=== PATIENT | female | born 1950 | race Caucasian/White ===

== ENCOUNTER → 2018-04-29 | Outpatient (CLI) | payer MEDICARE, OTHER | LOC: LAB SHORT 10:18 → LAB 10:18 | DX: S91.001A Unspecified open wound, right ankle, initial encounter (principal) | CPT/HCPCS: 87070; 87205 ==

== ENCOUNTER 2021-09-15 14:51 | Inpatient (IN) | payer MEDICARE, OTHER ==
[~2021-09-15] VITALS: Ht 154.9 cm; Wt 54.7 kg
[2021-09-15 17:51] LABS: PCO2 Arterial 42.6 mmHg (35-45)
[2021-09-15 17:59] LABS: BASOPHILS ABSOLUTE AUTO 0.03 K/mm3 (0.00-0.23); BASOPHILS PERCENT AUTO 0 % (0-2); EOSINOPHILS PERCENT AUTO 0 % (0-6); Hematocrit 40.5 % (33.0-51.0); Hemoglobin 13.6 g/dL (11.5-16.0); IMMATURE GRAN ABSOLUTE AUTO 0.06 K/mm3 (0.00-0.10); IMMATURE GRAN PERCENT AUTO 0 % (0-1); LYMPHOCYTES ABSOLUTE AUTO 0.55 K/mm3 (0.84-5.20); LYMPHOCYTES PERCENT AUTO 4 % (21-46); MONOCYTES ABSOLUTE AUTO 1.23 K/mm3 (0.16-1.47); MONOCYTES PERCENT AUTO 9 % (4-13); Mean Corpuscular HGB 29.7 pg (26.0-34.0); Mean Corpuscular HGB Conc 33.6 g/dL (31.5-36.5); Mean Corpuscular Volume 88 fL (80-100); Mean Platelet Volume 12.3 fL (9.1-12.4); NEUTROPHILS ABSOLUTE AUTO 11.52 K/mm3 (1.96-9.15); NEUTROPHILS PERCENT AUTO 86 % (41-73); Platelet Count 195 K/mm3 (150-400); RDW Coefficient Variation 13.8 % (11.7-14.2); RDW Standard Deviation 44.8 fL (35.1-46.3); Red Blood Cell Count 4.58 M/mm3 (3.80-5.20); White Blood Cell Count 13.39 K/mm3 (4.00-11.30)
[2021-09-15 18:25] LABS: Magnesium, Blood 1.6 mg/dL (1.6-2.4)
[2021-09-15 18:30] LABS: Albumin, Blood 2.9 g/dL (3.4-5.0); Albumin/Globulin Ratio 1.1 (0.8-1.8); Bilirubin, Total 0.9 mg/dL (0.1-1.0); Bun/Creatinine Ratio 15.1 (12.0-20.0); Calcium, Blood 8.5 mg/dL (8.5-10.1); Creatinine, Blood 0.99 mg/dL (0.40-1.00); Globulin, Blood 2.7 g/dL (2.2-4.0); Phosphorus, Blood 2.8 mg/dL (2.5-4.9); Potassium, Blood 4.7 mmol/L (3.5-5.5); Total Protein, Blood 5.6 g/dL (6.4-8.2)
--- NOTE | 2021-09-15 19:28 | NUR ---
Assumed care. Report received from abdelrahman KAYE. Pt in bed, sedated and ventilated via ETT. Vent settings: AC/VC 14/300/5/45%. OG tube in place, to low int suction. R/fem central line in place, wnl. IV access in L/ac and R/ac. IV pumps running propfol at 10 mcg/kg/min, levophed at 12 mcg/min, and NS at 100 ml/hr. Trammell catheter in place, draining to gravity. SWB restraints in place. VS stable, no acute needs att. Will continue to monitor.
--- NOTE | 2021-09-15 19:32 | NUR ---
ICU DIRECT ADMISSION: REPORT RECEIVED FROM MIKKI FITZGERALD AT [facility]. PT HAS ARRIVED TO ICU-13 VIA DIRECT ADMISSION AT APPROX 1710. ON ARRIVAL, THE PT IS SEDATED W/ FENTANYL & VERSED DRIPS. MEDICATIONS PLACED ON SB PER DR BARKER TO ASSESS PT MENTATION. SHE BEGINS TO AWAKEN & APPEARS TO BE FRIGHTENED/ CONFUSED AT THAT TIME, DOES NOT FOLLOW DIRECTIONS. PUPILS ARE EQUAL, REACTIVE & BRISK. PROPOFOL INITIATED AT THAT TIME. LS ARE CLEAR T/O, PT ON VENT W/ SETTINGS INITIALLY AC/VC 22/300/7/90%, ADJUSTED TO 14/300/5/60% PER GER M, RT. O2 SATS REMAIN > 95% ON AVG. MONITOR SHOWS SR W/ HR 90s, LEVOPHED INITIALLY INFUSING AT 0.2 MCG/KG/MIN FOR A CALCULATED RATE OF 11.3 MCG/MIN. CHANGED BY THIS RN TO 12 MCG/MIN. PT REMAINS HYPOTENSIVE W/ SBP 90s, MAP MAINTAININ > 65. OGT IN PLACE TO LIS, MOD AMNTS OF ORANGE COLORED LIQUID NOTED IN CANISTER, PER TUBE KCL REPLETION GIVEN APPROX 3 HRS PRIOR BY [facility], BT HYPOACTIVE. 16F TEMP CRUZ IN PLACE ON ARRIVAL TO ICU, DRAINING COPIOUS AMNTS CLEAR YELLOW URINE. SKIN CONDITION OVERALL FRAGILE, INTACT. NUMEROUS AREAS OF ECCYMOSIS NOTED TO BUE. THE PT's HAS CALLED & STS THAT HE BELIEVES THIS INCIDENT TO BE AN INTENTIONAL OVERDOSE. Blanca WELCH & MJ AWARE, THE PT WILL BE HIGH SI RISK W/ 1:1 SITTER ONCE EXTUBATED. POISON CENTER CONTACTED BY THIS RN, UPDATED THEM ON PT's VS & CURRENT LABS. THEY RECOMMEND RECHECKING ACETAMINOPHEN, SALICYLATE & CK LEVELS, WELL OBTAINING AN EKG THERE IS NO RECORD OF ONE BEING COMPLETED PRIOR. DR BARKER AWARE & ORDERS PLACED. REPORT GIVEN TO MINNIE Zuniga RN TO ASSUME CARE.
[2021-09-15 19:41] LABS: Acetaminophen, Random <2.0 ug/mL (10.0-30.0); Salicylate <1.7 mg/dL (2.8-20.0)
[2021-09-15 19:49] LABS: CPK Creatine Kinase 4345 U/L (26-193); Creatine Kinase MB Index 4.2 (0.0-4.0)
[2021-09-15 23:28] LABS: Albumin, Blood 2.8 g/dL (3.4-5.0); Bilirubin, Direct 0.3 mg/dL (0.0-0.3); Bilirubin, Indirect 0.6 mg/dL (0.1-0.7); Bilirubin, Total 0.9 mg/dL (0.1-1.0); Globulin, Blood 2.7 g/dL (2.2-4.0); Total Protein, Blood 5.5 g/dL (6.4-8.2)
[2021-09-16 03:46] LABS: BASOPHILS ABSOLUTE AUTO 0.05 K/mm3 (0.00-0.23); BASOPHILS PERCENT AUTO 0 % (0-2); Hematocrit 39.5 % (33.0-51.0); Hemoglobin 13.2 g/dL (11.5-16.0); LYMPHOCYTES ABSOLUTE AUTO 1.08 K/mm3 (0.84-5.20); LYMPHOCYTES PERCENT AUTO 5 % (21-46); MONOCYTES ABSOLUTE AUTO 1.58 K/mm3 (0.16-1.47); MONOCYTES PERCENT AUTO 7 % (4-13); Mean Corpuscular HGB 29.3 pg (26.0-34.0); Mean Corpuscular HGB Conc 33.4 g/dL (31.5-36.5); Mean Corpuscular Volume 88 fL (80-100); Mean Platelet Volume 12.4 fL (9.1-12.4); Platelet Count 211 K/mm3 (150-400); RDW Standard Deviation 45.1 fL (35.1-46.3)
[2021-09-16 03:54] LABS: EOSINOPHILS ABSOLUTE AUTO 0.21 K/mm3 (0.00-0.68); EOSINOPHILS PERCENT AUTO 1 % (0-6); IMMATURE GRAN ABSOLUTE AUTO 0.19 K/mm3 (0.00-0.10); IMMATURE GRAN PERCENT AUTO 1 % (0-1); NEUTROPHILS ABSOLUTE AUTO 19.69 K/mm3 (1.96-9.15); NEUTROPHILS PERCENT AUTO 87 % (41-73)
[2021-09-16 04:06] LABS: Albumin, Blood 2.7 g/dL (3.4-5.0); Albumin/Globulin Ratio 0.9 (0.8-1.8); Bilirubin, Total 0.9 mg/dL (0.1-1.0); Bun/Creatinine Ratio 12.8 (12.0-20.0); Calcium, Blood 8.4 mg/dL (8.5-10.1); Creatinine, Blood 1.09 mg/dL (0.40-1.00); Globulin, Blood 2.9 g/dL (2.2-4.0); Total Protein, Blood 5.6 g/dL (6.4-8.2)
--- NOTE | 2021-09-16 06:39 | NUR ---
Shift summary. Pt continues in bed, sedated and ventilated. Vent settings changed to PS 8/5, 35% FiO2. OG tube to low int suction. Levophed at 13 mcg/min, propofol at 20 mcg/kg/min, LR at 100 ml/hr. 1700 out of lugo this shift, clear/yellow. Pt is more responsive now, will nod yes/no to questions and follow simple commands. VS stable, see shift assessment for further details. Will continue to monitor and report off to dayshift RN.
--- NOTE | 2021-09-16 08:05 | NUR ---
ASSUMED CARE: REPORT RECEIVED FROM MORA Zuniga RN. ASSUMED CARE OF THIS PT AT APPROX 0700. ON ASSESSMENT, THE PT IS SEDATED W/ PROPOFOL & OVERALL RESTING QUIETLY. SHE AWAKENS TO VERBAL STIMULUS & APPEARS STARTLED, GRABBING AT LINES/ TUBES. SHE RESPONDS WELL TO VERBAL REDIRECTION & IS ABLE TO FOLLOW DIRECTIONS, ANSWERING YES/ NO QUESTIONS BY NODDING HEAD & PYLE. LS ARE CLEAR, PT ON SPONTANEOUS W/ PS 8, PEEP 5 & FIO2 35% W/ O2 SATS > 92%. MONITOR SHOWS SR W/ HR 70-90s, HYPOTENSIVE ON LEVOPHED - SEE FLOWSHEET FOR TITRATIONS. OGT IN PLACE, CLAMPED AT APPROX 0750 AFTER AM MEDS, WILL RESUME LIS AT APPROX 0850. TEMP CRUZ PATENT/ DRAINING YELLOW URINE. SKIN CONDITION OVERALL FRAGILE, INTACT. Q2H REPOSITIONING TO MAINTAIN SKIN INTEGRITY. WILL CONTINUE TO MONITOR & UPDATE NEEDED.
--- NOTE | 2021-09-16 10:05 | NUR ---
POISON CENTER: CALL FROM POISON CENTER RN REQUESTING AN UPDATE ON THIS PT. THIS RN HAS PROVIDED POISON CENTER RN W/ UPDATED LAB WORK & VS, INFORMED THEM THAT PT IS LIKELY TO BE EXTUBATED TODAY AT SOME POINT. NO CHANGES TO POC AT THIS TIME, THEY WILL CALL BACK LATER FOR ANOTHER UPDATE.
--- NOTE | 2021-09-16 10:25 | NUR ---
DR BEST: PROVIDER AT BEDSIDE THIS AM TO EVAL PT. HE HAS ADJUSTED VENTILATOR SETTINGS TO SPONTANEOUS W/ PS 5, PEEP 5 & 30% FIO2. O2 SATS REMAIN > 95%. DR BEST WOULD LIKE TO EXTUBATE THIS PT TODAY. INFORMED HIM THAT A 1:1 SITTER WILL NEED TO BE ARRANGED R/T PT's HX SI/ SA & CURRENT OVERDOSE. WILL CONTACT HOSPITALIST DR WELCH & UPDATE HER WELL. NO OTHER CHANGES AT THIS TIME.
--- NOTE | 2021-09-16 15:25 | NUR ---
EXTUBATION / SUICIDE PRECAUTIONS IMPLEMENTATION: SEDATION HAS BEEN PLACED ON STANDBY & THE PT IS IS ABLE TO AWAKEN FULLY, FOLLOW DIRECTIONS & ANSWER YES/ NO QUESTIONS BY NODDING HEAD. DR BEST STS THAT SHE IS OKAY FOR EXTUBATION & ORDERS PLACED. THIS RN HAS CONTACTED DR WELCH REGARDING PENDING EXTUBATION TO NOTIFY HER OF NEED TO IMPLEMENT SI PRECAUTIONS FOR THIS PT R/T ADMITTING DX OF PRESCRIPTION OVERDOSE W/ UNKNOWN CIRCUMSTANCES. DR WELCH HAS PLACED ORDERS FOR INVOLUNTARY HOLD & PSYCHIATRY CONSULTATION. FACESHEET FAXED TO ED FOR DR WEATHERS BY THIS RN AT 1455. PT EXTUBATED & PLACED ON 2L NC AT 1458 BY RT SYLWIA. THE PT HAS A WEAK COUGH BUT HAS BEEN ABLE TO EXPECTORATE SOME SPUTUM & SPIT INTO YANKAUR WHEN PROMPTED BY THIS RN. O2 TITRATED UP TO 3L NC FOR DESATS TO 89% WHILE COUGHING/ ATTEMPTING TO SPEAK. THE PT HAS BEEN REMINDED BY THIS RN TO REST HER VOICE SHE WILL BE HOARSE S/P EXTUBATION. SHE ASKS THIS RN WHERE SHE IS & THIS RN EXPLAINS CIRCUMSTANCES OF HER ADMISSION. SHE IMMEDIATELY STS "I DID NOT TRY TO KILL MYSELF, THAT DOESN'T MAKE ANY SENSE." THIS RN INFORMS THE PT THAT A PSYCHIATRIC PROVIDER WILL BE SEEING HER TO ENSURE THAT SHE IS NOT A RISK TO HERSELF OR ANYONE ELSE & SHE HAS BEEN READ HER CIVIL RIGHTS. WITNESSED BY PO Alvarado RN, THE PT IS VERY WEAK & CURRENTLY UNABLE TO SIGN. RESTRAINTS REMOVED AT TIME OF EXTUBATION THE PT IS CURRENTLY APPROPRIATE & NOT ATTEMPTING TO PULL AT VITAL LINES/ TUBES. THIS RN IS NOW 1:1 SITTER AT BEDSIDE. ROOM MITIGATED & HIGH RISK SI DOCUMENTATION COMPLETE.
--- NOTE | 2021-09-16 17:16 | NUR ---
BEDSIDE SWALLOW EVAL: SWALLOW EVAL ATTEMPTED FOR THIS PT. AFTER 1ST TSP WATER THE PT HAS A GURGLING VOICE WHICH SHE IS ABLE TO CLEAR WELL & EXPECTORATES SOME SPUTUM AT THAT TIME ALSO. TRIAL STOPPED AT THAT TIME & PT CONTINUES TO BE NPO.
--- NOTE | 2021-09-16 17:20 | NUR ---
SHIFT SUMMARY: NO ACUTE CHANGES SINCE PRIOR UPDATES & EXTUBATION. THE PT REMAINS ORIENTED TO SELF, IS ABLE TO FOLLOW DIRECTIONS & MAKE NEEDS KNOWN. HER AFFECT IS EXTREMELY LABILE & AT TIMES SHE STS BEING THANKFUL TO THIS RN FOR THE CARE PROVIDED, WHILE AT OTHER TIMES SHE STS THAT THIS RN "DOES NOT CARE" ABOUT HER & BECOMES ANGRY, WAVING HER ARMS & STATING "NEVERMIND, GO AWAY." SHE IS ALSO HAVING SOME VISUAL HALLUCINATIONS, BUT IS AWARE THAT WHAT SHE IS SEEING IS NOT REAL & VERBALIZES THAT TO THIS RN. DR BEST HAS ORDERED IM ZYPREZA TO BE GIVEN PRN IF THE PT BECOMES INCREASINGLY AGITATED DURING THE EVENING OR NIGHT. VOICE REMAINS SOMEWHAT HOARSE BUT SHE IS BECOMING EASIER TO UNDERSTAND. LS DIM IN BASES, PT REMAINS ON 3L NC W/ O2 SATS > 92% ON AVG. COUGH IS BECOMING STRONGER & THE PT HAS BEEN ABLE TO EXPECTORATE SOME SPUTUM INTO TISSUES AT BEDSIDE. MONITOR SHOWS SR W/ HR 80s, LEVOPHED INFUSING AT 4 MCG/MIN W/ MAP > 65. THE PT HAS NO GI COMPLAINTS OTHER THAN THIRST, BEDSIDE SWALLOW ATTEMPTED, SEE PRIOR NOTE. TEMP CRUZ PATENT/ DRAINING DARK YELLOW URINE W/ ADEQUATE OUTPUT - SEE I&O. SKIN CONDITION OVERALL FRAGILE, ECCHYMOTIC, INTACT. Q2H REPOSITIONING TO MAINTAIN SKIN INTEGRITY. WILL CONTINUE TO MONITOR & REPORT OFF TO ONCOMING RN.
--- NOTE | 2021-09-16 17:42 | NUR ---
POISON CENTER: CALL FROM POISON CENTER RN REQUESTING AN UPDATE ON THIS PT. NOTIFIED THEM THAT THE PT HAS BEEN EXTUBATED & IS CURRENTLY DOING WELL W/ STABLE O2 SATS & IMPROVING BP. THIS RN HAS ASKED ABOUT THE MEDICATIONS THE PT IS SUSPECTED TO HAVE TAKEN REGARDING THE PT's CURRENT VISUAL HALLUCINATIONS. POISON CENTER RN STS THAT DUE TO THE ANTICHOLINERGIC EFFECTS OF SEROQUEL, IT IS LIKELY THAT OVERDOSING ON THIS MEDICATION COULD CAUSE VISUAL HALLUCINATIONS. IF THIS ISSUE WORSENS, CONTACT THE POISON CENTER AGAIN. NO CHANGES AT THIS TIME.
--- NOTE | 2021-09-16 19:00 | NUR ---
ASSUMPTION OF CARE PT IS RESTING IN BED. WHEN ENTERING ROOM, SHE MAKES EYE CONTACT AND SMILES. SHE IS PLEASANT, CALM AND COOPERATIVE AT THIS TIME. SHE STS "IT'S HARD FOR ME TO TALK, MY THROAT IS SORE AND THERE IS A CUP OF WATER OVER THERE". EXPLAINED RESULTS OF PREVIOUS SWALLOW EVAL AND IMPORTANCE OF PREVENTING ASPIRATION. SHE IS ABLE TO STATE HER FULL NAME/. SHE IS AWARE THAT SHE IS AT THE HOSPITAL BUT IS UNSURE HOW SHE GOT HERE. SHE ASKS "DID I FALL?". EXPLAINED THAT SHE WAS FOUND AT HER HOME, UNRESPONSIVE ON THE FLOOR AND THAT SHE RECEIVED CPR. SHE NODS AND SAYS "THAT MUST BE WHY MY CHEST IS SORE". SHE IS ON 3L NC WITH SPO2 >92%. LEVOPHED INFUSING AT 4MCG/MIN WIHT MAP >65. LUNGS ARE COARSE. SHE HAS A MOIST COUGH, ENCOURAGED DEEP BREATHING AND STRONG COUGH. TEMP CRUZ IN PLACE DRAINING CLEAR YELLOW URINE. CURRENT TEMP 100.2. CENTRAL LINE TO R GROIN INTACT. IVS IN LAC & RAC. RT AT BEDSIDE, PT PARTICIPATES IN CONVERSATION WITH HIM. THIS RN 1:1 SITTER AT BEDSIDE DUE TO HIGH RISK SI PRECAUTIONS.
--- NOTE | 2021-09-16 20:26 | NUR ---
SI REASSESSMENT PT STS "I DON'T KNOW WHY I'M HERE OR WHAT HAPPENED.". EXPLAINED THAT SHE WAS FOUND UNRESPONSIVE AT HOME WITH MEDICATION BOTTLES SURROUNDING HER. SHE STS "THAT DOESN'T MAKE SENSE". SHE STS SHE USED TO TAKE SEROQUEL BUT NO LONGER DOES AND THE BOTTLE MAY HAVE STILL BEEN IN THE VANITY. AT THIS TIME, SHE DENIES SI, DENIES ATTEMPTING OR EVER ATTEMPTING SELF HARM, DENIES A PLAN OR INTENTION OF SELF HARM. THIS RN CONTINUES TO BE A 1:1 SITTER AT BEDSIDE. WILL CONTINUE TO REASSESS.
--- NOTE | 2021-09-17 02:43 | NUR ---
UPDATE PT HAS BEEN SLEEPING ON AND OFF THROUGHOUT THE NIGHT. SHE REMAINS ALERT TO HERSELF AND THAT SHE IS IN THE HOSPITAL BUT DOES NOT KNOW WHY SHE IS HERE. PT REMINDED SEVERAL TIMES THIS SHIFT AND PT STS "I DON'T REMEMBER THAT". SHE CONTINUES TO DENY SI BUT ALSO DENIES ANY HISTORY OF SELF HARM. MOOD IS LABILE. SHE STAYS CALM BUT EXPRESSES FRUSTRATION. SHE INSISTS ON DRINKING WATER. EXPLAINED RISK FOR ASPIRATION AND PT STS "THIS PLACE IS TERRIBLE, I NEED WATER. I'M DEHYDRATED". EXPLAINED TO PT THAT SHE IS RECEIVING IV FLUIDS. PT SAT UP IN HIGH FOWLERS POSITION FOR BEDSIDE SWALLOW EVAL. WITH 1TSP WATER, PT IMMEDIATELY BEGINS COUGHING AND HAVING WET SECRETIONS. PT REMAINS NPO STATUS AND EXPLAINED AGAIN REASONING FOR THIS. SHE STS "THERE IS ALREADY WATER IN MY LUNGS SO WHY DOES IT MATTER IF MORE GETS IN". PT WANTS TO SIT ON BEDSIDE COMMODE. PT SAT ON EDGE OF BED WITH MINIMAL ASSISTANCE. SHE DENIES DIZZINESS OR FEELING LIGHTHEADED. PT ASSISTED TO BEDSIDE COMMODE, FAIRLY STEADY ON FEET WITH 1 PERSON ASSIST. UNABLE TO HAVE BM AT THIS TIME. LEVOPHED CONTINUES TO INFUSE AT 3MCG/MIN WITH MAP >65. SHE IS ON 4L NC WITH SPO2 >95%. HR 70S-80S. ONE SMALL RUN OF SINUS TACH IN 130S THAT QUICKLY RESOLVED WHILE PT WAS SLEEPING. SHE DENIES CP. THIS RN REMAINS 1:1 SITTER. PT CURRENTLY RESTING WITH EYES CLOSED.
[2021-09-17 04:31] LABS: BASOPHILS ABSOLUTE AUTO 0.03 K/mm3 (0.00-0.23); BASOPHILS PERCENT AUTO 0 % (0-2); EOSINOPHILS ABSOLUTE AUTO 0.02 K/mm3 (0.00-0.68); EOSINOPHILS PERCENT AUTO 0 % (0-6); Hematocrit 34.8 % (33.0-51.0); Hemoglobin 11.4 g/dL (11.5-16.0); IMMATURE GRAN ABSOLUTE AUTO 0.35 K/mm3 (0.00-0.10); IMMATURE GRAN PERCENT AUTO 2 % (0-1); LYMPHOCYTES ABSOLUTE AUTO 0.92 K/mm3 (0.84-5.20); LYMPHOCYTES PERCENT AUTO 5 % (21-46); MONOCYTES ABSOLUTE AUTO 0.87 K/mm3 (0.16-1.47); MONOCYTES PERCENT AUTO 5 % (4-13); Mean Corpuscular HGB 29.5 pg (26.0-34.0); Mean Corpuscular HGB Conc 32.8 g/dL (31.5-36.5); Mean Corpuscular Volume 90 fL (80-100); Mean Platelet Volume 12.8 fL (9.1-12.4); NEUTROPHILS ABSOLUTE AUTO 16.53 K/mm3 (1.96-9.15); NEUTROPHILS PERCENT AUTO 88 % (41-73); Platelet Count 152 K/mm3 (150-400); RDW Coefficient Variation 14.2 % (11.7-14.2); RDW Standard Deviation 46.5 fL (35.1-46.3); Red Blood Cell Count 3.87 M/mm3 (3.80-5.20); White Blood Cell Count 18.72 K/mm3 (4.00-11.30)
[2021-09-17 04:47] LABS: Albumin, Blood 2.3 g/dL (3.4-5.0); Anion Gap 8 mmol/L (6-16); Blood Urea Nitrogen 14 mg/dL (8-24); Bun/Creatinine Ratio 16.4 (12.0-20.0); CO2, Blood 29 mmol/L (21-32); Chloride, Blood 106 mmol/L (98-108); Creatinine, Blood 0.86 mg/dL (0.40-1.00); Glomerular Filtration Rate 72 (60-); Glucose, Blood 99 mg/dL (70-99); Phosphorus, Blood 3.3 mg/dL (2.5-4.9); Potassium, Blood 2.8 mmol/L (3.5-5.5); Sodium, Blood 143 mmol/L (136-145)
--- NOTE | 2021-09-17 05:41 | NUR ---
SHIFT SUMMARY PT HAS SLEPT ON AND OFF THROUGHOUT NIGHT. SHE REMAINS ON LEVOPHED AT 3MCG/MIN AND NS TKO. SHE IS ON 4L NC. PT IS ABLE TO STATE HER NAME AND , KNOWS HER FAMILY, AND KNOWS SHE IS IN THE HOSPITAL. SHE REPEATEDLY ASKED WHY SHE IS AT THE HOSPITAL, EXPLAINED SITUATION MULTIPLE TIMES. PT REPLIES WITH STATEMENTS INCLUDING "THAT DOESN'T MAKE SENSE.", "I DON'T KNOW HOW THAT WOULD HAPPEN", AND "MY IS THE REASON I'M IN HERE". WHEN ASKED ABOUT SHE SAYS THEY DO NOT GET ALONG WELL. SHE DENIES SI OR EVER HAVING A SUICIDE ATTEMPT. SHE REPEATEDLY ASKS FOR WATER. 2 FAILED BEDSIDE SWALLOW EVAL YESTERDAY DURING DAY SHIFT, 1 FAILED THIS SHIFT. PT IMMEDIATELY BEGINS COUGHING AFTER 1 TEASPOON OF WATER. PT INSISTS ON WATER, EXPLAINED ASPIRATION RISK AND SHE STS "THIS PLACE IS TERRIBLE". SPEECH THEREAPY CONSULT PLACED. VOICE REMAINS HOARSE AND SOFT SPOKEN. OCCASIONAL PRODUCTIVE COUGH. LUNGS COARSE, DIM IN BASES. C/O THROAT DISCOMFORT. BOWEL TONES HYPOACTIVE. TEMP CRUZ PATENT AND DRAINING CLEAR YELLOW URINE TO GRAVITY. SHIFT OUTPUT OF 600ML. PT UP TO BEDSIDE COMMODE ONCE DURING SHIFT WITH MINIMAL ASSISTANCE, UNABLE TO HAVE BM. CENTRAL LINE REMAINS IN R GROIN, IVS PATENT IN RAC AND LAC. MORNING LABS SHOW POTASSIUM 2.8. ORDER RECEIVED FOR SUPPLEMENTAL KCL. SHE HAS BEEN IN SINUS RHYTHM WITH RATE IN 70S-80S. QT INTERVAL 460S-490S. NO CALLS FROM POISON CONTROL THIS SHIFT. PT REMAINS 1:1 SITTER DUE TO HIGH RISK SUICIDE SCREENING.
--- NOTE | 2021-09-17 07:00 | NUR ---
ASSUME CARE: I have assumed care of this patient.
--- NOTE | 2021-09-17 10:17 | NUR ---
POISON CONTRIL: This RN spoke with pharmacist Surjit from poison control; recommends obtaining repeat EKG
--- NOTE | 2021-09-17 12:01 | NUR ---
Spiritual Care Visit. Pt. is sitting up in a chair. Pt. is on 1-on-1 observation for SI. Pt. welcomes my visit. Pt. verbalizes that she has seen me before, but we cannot make any solid connection. With a calming presence, rapport is established with the Pt. Pt. displays evidence of trust and engagement. Pt. verbalized her spiritual background, but did not seem to have many relationships to support her. This textile colorist formulator made decision to do a "Things We Care to Know Survey." Pt. displayed evidence of responding thoughtfully. After Survey, this textile colorist formulator was called away to a Rapid Response in the ED. Pt. verbalized gratitude for the spiritual care visit. This textile colorist formulator will post Pts. responses on her wall in ICU13. "Things We Care to Know" is a spiritual care harbor boat pilot program designed to personalize the Pt./Staff relationship.
--- NOTE | 2021-09-17 17:59 | NUR ---
SHIFT SUMMARY: NEURO: pt alert and oriented. she notes that she initially did not remember attempting suicide, however the memory of the event is returning. She was up with therapies today and into chair for several hours. CARDIAC: norepinephrine titrated off at 9am this today. BPs have been stable with MAPs above 65 since. HR in NSR. EKG repeated per poison control request. Femoral central line removed without complication. RESPIRATORY: pt continues on 3L nasal cannula with SpO2 in low 90s. GI/: no BM today. Rtammell removed this afternoon; still pending first void post removal. pt notes that she is fully continent at home. PSYCH/SOCIAL: telepsych consult today. 2 MD hold dropped and pt moved from high suicide risk to low. She denies any SI to RN today. Pt's was at bedside to visit as well as a close friend today.
--- NOTE | 2021-09-17 18:12 | NUR ---
PROVIDER PHONE CALL: Dr. Pizano called and notified of temperature blood cultures and rectal tylenol.
--- NOTE | 2021-09-17 20:43 | NUR ---
ASSUMED PT CARE AT 1900 PT SITTING UP IN BED. ALERT AND ORIENTED AND ABLE TO MAKE HER NEEDS KNOWN. REQUESTING WATER. INFORMED HER SHE WAS NPO DUE TO ASPIRATION RISK; HOWEVER, WOULD BE WILLING TO GIVE HER ICE CHIPS, WHICH SHE TOLERATED WELL WITH NO OVERT S/SX OF ASPIRATION. PT HAS VERY DRY/CRACKED LIPS. HAS NOT VOIDED SINCE REMOVAL OF CRUZ CATHETER ON DAY SHIFT. LR IS INFUSING AT 100ML/HR. PT IS NSR WITH HR 70'S. BP'S STABLE, SEE FLOWSHEET. RIGHT THIGH SITE FROM CENTRAL LINE HAS DRESSING THAT IS INTACT AND CDI; NO OOZING OR SIGNS OF HEMATOMA. SKIN OTHERWISE IS INTACT. TRACE EDEMA TO BILATERAL ANKLES. LUNG SOUNDS ARE VERY COURSE/RHONCHI T/O ALL LOBES. 3L OF OXYGEN VIA NC WITH OXYGEN SATURATIONS AT 98%. PT STATES STATES SHE DOES NOT WEAR OXYGEN AT HOME. REPORT GIVEN TO MIKKI GABRIEL. PT TO TRANSITION TO MED FLOOR.
[2021-09-17] MEDS ORDERED: EUTHYROX100 MC1 PO (22:29)
[2021-09-17] MEDS ORDERED: PROZAC20 M9 PO (22:30)
[2021-09-17] MEDS ORDERED: FOLI1 PO (22:30)
[2021-09-17] MEDS ORDERED: AMIT50 PO (22:30)
[2021-09-17] MEDS ORDERED: QUETIAPINE FUMA25 MG PO (22:34)
[2021-09-17] MEDS ORDERED: ROSUVASTATIN CAL5 MG PO (22:34)
[2021-09-17] MEDS ORDERED: DONEPEZIL HCL5 M2 PO (22:34)
[2021-09-17] MEDS ORDERED: PRAZ2 PO (22:34)
--- NOTE | 2021-09-18 05:49 | NUR ---
SHIFT SUMMARY PATIENT ALERT AND ORIENTED. HAD NO COMPLAINTS OF PAIN OR SHORTNESS OF BREATH. NO ACUTE ISSUES NOTED OVERNIGHT. CALL LIGHT WITHIN REACH. REPORT GIVEN TO ONCOMING RN.
[2021-09-18 06:32] LABS: Bun/Creatinine Ratio 20.6 (12.0-20.0); Calcium, Blood 8.9 mg/dL (8.5-10.1); Creatinine, Blood 0.68 mg/dL (0.40-1.00); Potassium, Blood 3.3 mmol/L (3.5-5.5)
[2021-09-18 06:36] LABS: Mean Corpuscular HGB 29.8 pg (26.0-34.0); Mean Corpuscular HGB Conc 31.6 g/dL (31.5-36.5); Mean Corpuscular Volume 94 fL (80-100); Platelet Count 144 K/mm3 (150-400); RDW Coefficient Variation 13.7 % (11.7-14.2); Red Blood Cell Count 4.03 M/mm3 (3.80-5.20); White Blood Cell Count 16.24 K/mm3 (4.00-11.30)
[2021-09-18 06:39] LABS: Mean Platelet Volume 13.3 fL (9.1-12.4)
--- NOTE | 2021-09-18 12:00 | NUR ---
Spiritual Care Visit. Pt. is sitting up on the side of her bed, and welcomes my visit. Pt. is unsettled by a sense of personal guilt over her past life. Listen pastorally with a calming presence. Explore issues of rosa and belief, with a calming presence. Pt. becomes cathartic over her sense of guilt. [place] with Pt. Pt. verbalizes gratitude for the spritual care visit. Pt. has expressed that she had left her bible at home. This beef cattle specialist will deliver her a NT/Psalms.
--- NOTE | 2021-09-18 17:24 | NUR ---
PT IS ALERT, ORIENTED TO SELF FAMILY AND SURROUNDINGS. THE PT HAS BEEN COOPERATIVE. THE PT HAS BEEN EMOTIONAL/TEARFULL AT TIMES TODAY. STATEING CONCERNS ABOUT HER AND HER FAMILY. THE PT IS FORGETFULL AND HAS BEEN SAYIN THINGS LIKE " DO YOU KNOW OF ANYONE WHO NEEDS A HEART BECAUSE THEY CAN HAVE MINE" AND IF SHE HEARS CAUGHING SHE STATES THAT SHE IS WILLING TO GIVE HER LUNGS TO SOMEONE THAT REALLY NEEDS THEM". PT HAS BEEN SITTING UP ON THE SIDE OF THE BED FOR MOST OF THE DAY. THE PT HAD VISITORS FROM FAMILY TODAY. DR. WOLF CONSULTED WITH THE PT THIS AFTERNOON. CALL LIGHT IN REACH. WILL CONTINUE TO MONITOR AND ASSESS FOR CHANGES.
[2021-09-19 05:45] LABS: Calcium, Blood 8.8 mg/dL (8.5-10.1); Creatinine, Blood 0.56 mg/dL (0.40-1.00); Potassium, Blood 3.4 mmol/L (3.5-5.5)
--- NOTE | 2021-09-19 06:21 | NUR ---
SHIFT SUMMARY PATIENT ALERT AND ORIENTED TO SELF. HAS BEEN DELUSIONAL OVERNIGHT ASKING IF IT'S TIME FOR THE BUILDING TO BLOW UP AND BURRY HER, BECOMING HER TOMB, OR ASKING IF LIFE FLIGHT WAS COMING TO HARVEST HER ORGANS. SHE IS OTHERWISE PLEASANT AND NO OTHER ISSUES NOTED. CALL LIGHT WITHIN REACH. REPORT GIVEN TO ONCOMING RN.
--- NOTE | 2021-09-19 16:29 | NUR ---
Review of pt with care team and nursing. Met with speech therapist to review barium swallow evaluation. We met with patients to review the failed study. The speech therapist reviewed the detatils manjeet the study the risks associated with aspiration and the options of treatment. We reviewed having peg tube and how it would be managed. Offered therapy and peg tube placement options. is very distraught and fragile and tearfull. Showing severe caregiver stress. We discussed prognsosis, code status, risk for the peg tube to fail or be pulled out and further aspiration. We also reviewed how the past few months have been. We then discussed hospice as an option of care and to reduce their great suffering. He was very understanding of hospice. Still a difficult discussion due to his great stress and fatigue. He felt getting her somwhere that the care can come to her and she have a more stable existance was a very good idea to end th harshness. We discussed his needs and getting him some support. They were both raised as catholics he would like to speak to a side seam envelope machine operator. He stated she told him today that he will go to [facility] because he took care of her. Thershawanda tiem with pt disussing getting him some help. [facility] on getting him support. He is was able to express great stress and relief on making a decision. updated care team. pt dnr with hospice referral.
--- NOTE | 2021-09-19 18:09 | NUR ---
SUMMARY PT RESTING IN BED, PT HAS BEEN CONFUSED AND DELUSIONAL FOR MOST OF THE DAY, ASKED IF WE WERE IN [place], STATES SHE IS WAITING FOR HER ORGANS TO BE DONATED, AND ASKING IF WE WERE GOING TO "BLOW UP", PT HAD A BARIUM SWALLOW TODAY AND FAILED, SPOUSE HAS BEEN IN TO VISIT, PALLIATIVE CARE AND SPEECH SPOKE WITH THE SPOUSE REGARDING THE SWALLOW EVAL AND PLAN OF CARE, PT HAS BEEN IMPULSIVE AND DOES NOT USE HER CALL LIGHT, BUT PLEASANT AND COOPERATIVE WITH CARE, VSS, WILL CONT TO MONITOR
[2021-09-20 05:40] LABS: Bun/Creatinine Ratio 23.4 (12.0-20.0); Creatinine, Blood 0.56 mg/dL (0.40-1.00); Potassium, Blood 2.9 mmol/L (3.5-5.5)
--- NOTE | 2021-09-20 10:11 | NUR ---
PAL CARE VISIT AND CASE CONFERENCE - T/C received from pt's RN with update on status and concerns for increasing agitation t/o night and am, attempts to have PO intake, including drinking water out of the sink. T/c to [facility] and pt's . I had to leave a message on husbands phone with request for him to call back. Pt has already requested hospice support on d/c from hospital. Recommendation is now for comfort care/EOL care to be started here so pt can have some comfort and pleasure/soothing with PO intake.For aspirations precautions, ST recommends pudding thick liquid or puree. VO obtained for comfort care orders pending 's approval. Will await his return call and RN to page me if he arrives to visit. I stopped by room to assess pt. She has been agitated and up in room this am. Currently, she was sitting quietly, watching TV so I did not disturb her.
--- NOTE | 2021-09-20 10:43 | NUR ---
Pt's returned call and requests that we focus on whatever will make Jacinta comfortable. He is agreeable to transition to comfort care at this time. He verbalizes understanding that she will be allowed to have oral intake and that she is at risk for further aspiration events. He states he will be over on Wednesday to visit and reports he "is a nervous wreck" at this time. Self care and rest encouraged and assured we would call with any changes and that he could call us for updates. RN and updated and VO for comfort care orders entered.
--- NOTE | 2021-09-20 17:48 | NUR ---
SHIFT SUMMARY PT WAS VERY AGITATED THIS MORNING. ANXIOUS ABOUT LEAVING, STATING SHE DOESN'T WANT TO BE HERE, CONFUSED FLIGHT OF IDEAS. SHE WAS UP WANDERING IN HER ROOM, BUT IS UNSTABLE. SHE ALSO REMOVED HER IV. FAMILY AGREED SHE SHOULD BE ON COMFORT CARE TO HELP EASE HER ANXIETY AND SO SHE COULD EAT. SHE HAS BEEN BEEN IN A FARHAT SINE 1200 TO PREVENT FALLS SHE IS NOT REDIRECTABLE AND CONSTANTLY GETS OUT OF BED. SE IS CURRENLTY UP IN THE CHAIR WITH AN ALRM AND FARHAT. SHE HAS BEEN EATING PUREED FOODS AND PUDDING THICK LIQUIDS. SHE IS FREEE OF PAIN, BUT HAS INTERMITTENT ANXIETY AND AGITATION
--- NOTE | 2021-09-21 05:10 | NUR ---
UNIVERSITY MANAGER SUMMARY PT REMAINS ON COMFORT CARE. AT SHIFT COMMENCE SET BED ALARM OFF SOME 5 TIMES. FARHAT IN USE FOR SAFETY SHE REMAINS HIGH FALL RISK. VERBAL RESPONSE INCOHERENT AT TIMES, BUT NOTE OCCASIONAL FOLLOWING VERBAL COMMAND, EVEN THOUGH NOT TO STAY IN BED. TOLERATED SOME THICKENED LIQUIDS. HAS BEEN RESTING QUIETLY WITH FEW INTERRUPTIONS SINCE HS. CALL LIGHT IN REACH
--- NOTE | 2021-09-21 08:15 | NUR ---
PATIENT UP IN CHAIR EATING BREAKFAST. DENIES ANY PAIN, CALM AND COOPERATIVE WITH CARE.
--- NOTE | 2021-09-21 12:00 | NUR ---
PATIENT BACK TO BED, LUNCH OFFERED BUT PATIENT REFUSES AT THIS TIME. PATIENT DID EAT A GOOD BREAKFAST. PAIN IN RIBS WITH ACTIVITY AND COUGHING, ROXINOL GIVEN TO TREAT. BED ALARM SET FOR SAFETY.
--- NOTE | 2021-09-21 16:30 | NUR ---
PATIENT UP TO USE RESTROOM AND THEN ASSISTED IN SHOWER. PATIENT ABLE TO MOST OF THE CARE HERSELF. SPOKE WITH MARVEL THE PALLIATIVE CARE NURSE ABOUT RIB PAIN BECAUSE PATIENT STATED THAT ROXINOL DOES NOTHING TO HELP HER PAIN, MARVEL RECOMMENDED TRYING A LARGER DOSE AND SEE IF THAT WILL HELP MORE AND SHE WILL BE BY TO REEVALUATE IN THE MORNING. PATIENT AGREEABLE TO LARGER DOSE. PATIENT CONTINENT OF URINE/STOOL AND DID HAVE A LARGE BM THIS EVENING. UP IN CHAIR. CALM AND COOPERATIVE WITH CARE. CHAIR/BED ALARM USED FOR SAFETY.
--- NOTE | 2021-09-21 17:15 | NUR ---
[facility] Care comfort care visit and case conf with pt's RN. Pt reports earlier dosing of Roxanol 10 mg not effective for severe rib pain with coughing. Discussed strategy for increased relief using current rx and dosing per eMAR. If increasing roxanol to 20 mg dosing or adjunct use of ativan is not effective for pain relief, would recommend low dose duragesic patch for improved coverage for pain. Will reassess in am. RN reports pt has been more calm without agitation today. should be in to visit tomorrow, per my conversation with him yesterday by phone. He [place] [facility].
--- NOTE | 2021-09-22 03:58 | NUR ---
SHIFT SUMMARY PT COOPERATIVE AND PLEASANT THROUGHOUT SHIFT. PT TOOK NIGHT MEDICATIONS AND SLEPT MOST OF THE NIGHT. PT PLEASANTLY CONFUSED. PT IS A ONE PERSON STANDBY ASSIST. PT HAS CALL LIGHT WITHIN REACH. PT HAS NO COMPLAINTS AT THIS TIME.
--- NOTE | 2021-09-22 07:59 | NUR ---
pt sitting up in bed, has a very quiet raspy voice, asking for something to eat, denies pain unless touched, a/ox2 forgetful, lungs are course t/o, currently on 2 liters o2 via n/c, hrr, no edema noted, ppp+1, cap refill <3sec, vs stable, afebrile, btx4, hypoactive, voids without diff, skin frail but intact, ibis adair, call light in reach, took her po med with yogurt this am without diff.
--- NOTE | 2021-09-22 18:16 | NUR ---
pt has been in the chair, worked with therapy, no acute changes this shift. call light in reach.
--- NOTE | 2021-09-23 04:16 | NUR ---
SHIFT SUMMARY PT COOPERATIVE WITH CARE. PT SLEEPING MOST OF THE NIGHT. PT CONTINUES TO HAVE WHISPERING SOFT VOICE. PT HAS NO COMPLAINTS AT THIS TIME. CALL LIGHT IS WITHIN HER REACH.
--- NOTE | 2021-09-23 15:32 | NUR ---
Spiritual Care visit. Pt. is sitting in her chair, but welcomes my visit. I pulled up the physicians chair so I could hear the Pt. Pt. can only speak in a strained whisper. Pt. displayed evidence of being more emotionally balanced since my last visit, last week. Re-establish rapport. It is an objective of this human resource management instructor to bring some element of vin to the Pt. who has had a difficult time accepting forgiveness. The Pt. displays evidence of reading the bible I gave her the previous week. [place] with Pt. Pt. verbalized gratitude for the spiritual care visit.
--- NOTE | 2021-09-23 17:15 | NUR ---
pt aggitated at times , volunteers spent considerable time with her so did chaplian. Asked chaplian to follow up with .
--- NOTE | 2021-09-23 18:38 | NUR ---
SHIFT SUMMARY PT AXO TO X2-3 THOUGH MAKES ODD STATEMENTS AT TIMES. ON COMFORT CARE. 1 ASSIST TO BATHROOM AND WHEN AMBULATING. PATIENT WORKED WITH PHYSICAL THERAPY, SEE NOTE. NO ACUTE CHANGES THIS SHIFT THOUGH PATIENT MEDICATED FOR PAIN AND ANXIETY X1 THIS SHIFT. BED IN LOW POSITION, CALL LIGHT WITHIN REACH.
--- NOTE | 2021-09-24 05:18 | NUR ---
SHIFT SUMMARY PT COOPERATIVE WITH CARE. PT COMPLAINED LAST EVENING OF RIB PAIN. PT MEDICATED PER EMAR. PT HAS BEEN ASLEEP SINCE. PT HAS CALL LIGHT WITHIN HER REACH.
--- NOTE | 2021-09-24 12:19 | NUR ---
PT STATES IT IS PAINFUL ONLY WHEN SHE COUGHS AND IS FINE IF SHE STAYS STILL. DECLINED PAIN MED. ASSISTED PT TO BATHROOM SBA. TOLERATED ACTIVITY WELL. MOIST COUTGH WITH OCC PRODUCTION. SET UP FOR BREAKFAST.
--- NOTE | 2021-09-24 12:21 | NUR ---
PT UP IN CHAIR, EATING LUNCH. STATES SHE FEELS FINE AND DOESN'T NEED PAIN MEDS. RAMESH THE SERVICE CAME IN TO VISIT. PT SEEMED TO ENJOY THIS VISIT
--- NOTE | 2021-09-24 12:50 | NUR ---
Spiritual Care: Phone Call to Spouse At the recommendation of Palliative Care, a call was made to the Pts. spouse in [place]. Spouse reports that he has good support from family members. Spouse verbalizes that his one hope is that Pt. can be placed in a facility that can care for her. Spouse verbalized gratitude for the Spiritual Care phone call but denied any other needs at this time.
--- NOTE | 2021-09-24 15:42 | NUR ---
PT RESTING IN BED, TALKING ON PHONE TO FAMILY. DENIES PAIN, STATES SHE IS COMFORTABLE. TOLERATING FOOD AND FLUIDS. WILL CONT TO SUDHEER
--- NOTE | 2021-09-24 19:40 | NUR ---
SUMMARY- PT ALERT TO SELF, DELUSIONAL. SBA TO BATHROOM. SET OFF CHAIR ALARM A FEW TIMES TODAY. ABLE TO ASSIST WITH NO FALLS, STEADY ON FEET, OCC MIS-STEP. GOOD STRENGTH. FREQ MOIST COUGH, MEDICATED THIS AM WITH ROXONOL. OTHERWISE PT INSISTED SHE HAD NO PAIN. REPORTED TO JAIDEN KAYE.
--- NOTE | 2021-09-25 04:13 | NUR ---
SHIFT SUMMARY PT SLEPT MOST OF THE BEGINNING OF THE SHIFT. PT DID WAKE TO USE THE RESTROOM AND ASKED FOR PAIN MEDICATION. PT BEGAN CRYING IN PAIN. PT MEDICATED PER EMAR AND SHE LAYED BACK DOWN. PT HAS BEEN ASLEEP SINCE. PT HAS CALL LIGHT WITHIN HER REACH.
--- NOTE | 2021-09-25 16:32 | NUR ---
COMFORT CARE SHIFT SUMMARY PATIENT IS ALERT AND ORIENTED. PATIENT HAS BEEN PLEASENT AND COOPERATIVE WITH CARE. PATIENT HAS HAD NO ACUTE EVENTS THIS SHIFT. PATIENT HAS HAD NO COMPLAINTS OF PAIN, NAUSEA, SOB OR VOMITTING THIS SHIFT. PATIENT IS A ONE PERSON ASSIST TO BATHROOM. BED IN LOCKED AND LOWEST POSITION. CALL LIGHT IN PLACE. WILL MONITOR UNTIL SHIFT CHANGE.
--- NOTE | 2021-09-25 20:05 | NUR ---
COMFORT: PATIENT REPORTS A HEADACHE AND R RIB PAIN AFTER AMB. TO THE BATHROOM AND COUGHING SPELL. MORPHINE 5MG, ASSIST WITH REPOSITIONING AND EMOTIONAL SUPPORT ARE GIVEN. BED ALARM IS ON.
--- NOTE | 2021-09-25 21:04 | NUR ---
COMFORT: PATIENT REPORTS POOR EFFECT FROM ROXANOL 5MG. ROXANOL 20 MG IS GIVEN.
--- NOTE | 2021-09-26 00:06 | NUR ---
COMFORT: PATIENT HAD GOOD EFFECT FROM 20 MG OF ROXANOL. PATIENT IS SLEEPING, RESPIRATIONS ARE 16 AND EASY. BED ALRM IS ON.
--- NOTE | 2021-09-26 03:43 | NUR ---
COMFORT: PATIENT CONTINUES TO HAVE GOOD EFFECT FROM MORPHINE AND IS SLEEPING PEACEFULLY.
--- NOTE | 2021-09-26 03:45 | NUR ---
COMFORT: PATIENT IS UP TO THE BATHROOM WITH AX1 AND FWW. REPORTING PAIN IN RIGHT RIBS AND CHEST. 20 MG OF ROXANOL IS GIVEN PER MAY.
--- NOTE | 2021-09-26 06:17 | NUR ---
SHIFT SUMMARY: PATIENT REPORTS SIGNIFICANT CHEST AND RIGHT RIB PAIN THAT GOES UP TO 10/10 WITH COUGH OR MOVEMENT. 20 MG OF ROXANOL HAS BEEN PROVIDING EFFECTIVE PAIN CONTROL. BED ALARM IS ON FOR SAFETY.
--- NOTE | 2021-09-26 16:44 | NUR ---
SHIFT SUMMARY PATIENT IS ALERT AND ORIENTED. PATIENT IS A ONE PERSON ASSIST TO BATHROOM. PATIENT HAS HAD NO ACUTE EVENTS THIS SHIFT. BED IN LOCKED AND LOWEST POSITION. CALL LIGHT IN PLACE. WILL MONITOR UNTIL SHIFT CHANGE.
--- NOTE | 2021-09-26 21:18 | NUR ---
COMFORT: PATIENT IS A&O X4, REPORTS PAIN ONLY WITH MOVEMENT OR COUGHING. DENIES NEED OF PAIN MED AT THIS TIME.
--- NOTE | 2021-09-26 21:20 | NUR ---
COMFORT: PATIENT IS COUGHING AND IS UP TO THE BATHROOM. REPORTS PAIN AT 5/10 WHEN STILL 10/10 WITH COUGH AND MOVEMENT. TYLENOL IS GIVEN. PATIENT THEN REQUESTED MORPHINE. THIS MED WAS ASLO GIVEN.
--- NOTE | 2021-09-26 23:07 | NUR ---
COMFORT: PATIENT HAD GOOD EFFECT FROM THE MORPHINE AND TYLENOL. PATIENT IS SLEEPING, RESPIRATIONS ARE EASY AT 14. BED ALARM IS ON
--- NOTE | 2021-09-27 05:10 | NUR ---
COMFORT: PATIENT CONTINUES TO HAVE GOOD EFFECT FROM MORPHINE. SLEEPING WITH RESPIRATIONS EAST AT 14.
--- NOTE | 2021-09-27 05:12 | NUR ---
COMFORT: PATIENT WAS ASSISTED TO THE BATHROOM. DENIES NEED OF PAIN MEDICATION AT THIS TIME.
--- NOTE | 2021-09-27 05:41 | NUR ---
SHIFT SUMMARY: PATIENT HAS SLEPT WELL AND HAD GOOD PAIN CONTROL THIS SHIFT. WAS WORKING ON SOME CROSSWORD PUZZLES AND INTERACTING WITH STAFF. ABLE TO MAKE NEEDS KNOWN.
--- NOTE | 2021-09-27 09:17 | NUR ---
Comfort Care Visit Pt resting in bed and responds with quiet soft voice. Pt denies pain and dyspnea at this time. Spoke with Primary RN Genaro and discussed case. Genaro to request Miralax from hospitalist when she rounds on Pt. Palliative Care will remain available.
--- NOTE | 2021-09-27 15:47 | NUR ---
SHIFT SUMMARY PATIENT IS ON COMFORT CARE. PATIENT HAS HAD NO ACUTE EVENTS THIS SHIFT. PATIENT HAS BEEN MEDICATED FOR PAIN ONCE. PATIENT HAS HAD NO OTHER ACCOUNTS OF PAIN, SOB, VOMITTING, OR NAUSEA. PATIENT HAS BEEN CHECKED AND REPOSITIONED AT LEAST Q2.
--- NOTE | 2021-09-27 18:21 | NUR ---
COMFORT CARE SHIFT SUMMARY PATIENT HAS BEEN PLEASENT AND COOPERATIVE WITH CARE THIS SHIFT. PATIENT HAS REPORTED PAIN ONCE THIS SHIFT, MEDICATED PER EMAR. NO OTHER COMPLAINTS NOTATED. DR WANTED PATIENT TO TRY HAVING O2 OFF. PATIENT IS TOLERATING ROOM AIR. WILL MONITOR UNTIL SHIFT CHANGE.
--- NOTE | 2021-09-27 19:29 | NUR ---
COMFORT: PATIENT IS ASSISTED TO THE BATHROOM, AX1 WITH FWW. REPORTS CONSTIPATION. PATIENT ABLE TO COMPLETE CIPRIANO AND ORAL CARE INDEPENDANTLY. REPORTS CHEST PAIN WITH MOVEMENT BUT REFUSES PAIN MEDICATION AT THIS TIME.
--- NOTE | 2021-09-27 22:19 | NUR ---
COMFORT: PATIENT IS SLEEPING, REPOSITIONS IN BED INDEPENDANTLY. RESPIRATIONS ARE EASY AT 16. BED ALARM IS ON.
--- NOTE | 2021-09-27 22:51 | NUR ---
COMFORT: PATIENT IS PAINFULL AFTER COUGHING AND REQUESTED ROXANOL. 20 MG ROXANOL IS GIVEN.
--- NOTE | 2021-09-28 00:56 | NUR ---
COMFORT: PATIENT HAD GOOD EFFECT FROM ROXANOL. ASSISTED TO THE BATHROOM AND THEN BACK TO BED. REPORTING HEART BURN
--- NOTE | 2021-09-28 04:35 | NUR ---
COMFORT: PATIENT HAD GOOD EFFECT FROM MORHINE AND CONTINUES TO BE COMFORTABLE. SITTING UP IN BED DOING A CROSSWORD PUZZLE. PATIENTIS REFUSING THICKENED LIQUIDS. EDUCATION IS GIVEN ON ASPIRATION RISK PATIENT CONTINUES TO REFUSE THICKENED. THIN LIQUIDS ARE GIVEN PER PATIENT REQUEST. COUGHING OBSERVED AT TIMES.
--- NOTE | 2021-09-28 07:44 | NUR ---
SHIFT SUMMARY: PATIENT HAS HAD NO BM SINCE ADMIT. UNABLE TO DRINK ALL OF THE MIRALAX DUE TO COUGHING WITH FLUIDS. DULCOLAX SUPP WAS GIVE THIS AM. AWAITING RESULTS.
--- NOTE | 2021-09-28 07:48 | NUR ---
SHIFT SUMMARY: PATIENT WAS GIVEN DULCOLAX SUPP FOR CONSTIPATION, AWIATING RESULTS. COUGHING OBSERVED WITH THIN LIQUIDS. EDUCATION GIVEN, HOB ALL THE WAY UP WHEN TAKING PO FLUIDS, BEST TO SITTING IN THE CHAIR FOR MEALS.
--- NOTE | 2021-09-28 12:31 | NUR ---
Pt sitting on edge of bed eating her lunch. No S/S of distress at this time. Pt left undisturbed and spoke with Primary RN Genaro. No concerns reported at this time. Palliative Care will remain available.
--- NOTE | 2021-09-28 16:09 | NUR ---
COMFORT CARE SUMMARY PATIENT IS ALERT AND ORIENTED. PATIENT HAS HAD NO ACUTE EVENTS THIS SHIFT. PATIENT HAS COMPLAINED OF PAIN TWICE THIS SHIFT. MEDICATED PER EMAR. PATIENT HAS RESTED MOST OF SHIFT. NO OTHER COMPLAINTS.
--- NOTE | 2021-09-29 00:40 | NUR ---
PATIENT IS ALERT AND COOPERATIVE. PT WITH RIB PAIN, SHE HAS SOME COUGH, ? ASPIRATION, WHICH CAUSES INCRESED PAIN. RESTING AT THIS TIME.
--- NOTE | 2021-09-29 00:42 | NUR ---
PATIENT IS ABLE TO ASK FOR ASSIST NEEDED. ALLOWED TO REST, SHE IS SLEEPING QUIETLY. CALL LIGHT IN REACH.
--- NOTE | 2021-09-29 07:36 | NUR ---
Rn summary: Patient is comfort care. Pt is alert and cooperative. Bed alarm on for safety. Pt up to BSC with assist. Medicated x1 for rib pain with roxanol 20mg with relief. Pt has rested between BR needs.
--- NOTE | 2021-09-29 08:00 | NUR ---
PT SITTING IN BED TALKING. STATES NO PAIN AT THIS TIME. ALSO STATES HUSB NOT COMING IN TO ROOM. HE IN [place]. STATES SHE IS A LOT OF TROUBLE. HE WILL CALL HER IF CHOOSES. HE DOES NOT LET HER CALL. EXPRESSED THAT SHE HAS VALUE NO MATTER WHAT THINGS MAY OR MAY HAVE NOT DONE. OFFERED COMFORT, CALLED PASTORAL CARE. PT EATING FOOD. DENIES PAIN. COMFORT CARE. EXPRESSED NO NEEDS AT THIS TIME. 1 ASST TO BSC. BED IN LOW POSITION, CALL LITE IN REACH, CALLS APPROP
--- NOTE | 2021-09-29 10:00 | NUR ---
FAHAD AT BEDSIDE. PLEASANT. HE SAYS ITS OKAY SHE CALL AT ANY TIME.
--- NOTE | 2021-09-29 15:36 | NUR ---
Upon receiving a spiritual care referral from pt's RN Duane, I samaria pt. Pt is lying in bed and is very quiet. She immediately tells me that she "overdosed" with the "hopes of dying" and that it was not the 1st attempt. She tells me that she hurt people and continues hurting people and so it is "better that I don't exist." We begin to unpack these statements and she receives a ph call and tells me that she has to take the call. I will try to visit again another day and I do believe that some theraeputic alliance is established.
--- NOTE | 2021-09-29 16:49 | NUR ---
PT CONTINUES TO SLEEP MUCH OF DAY. HAS BEEN QUITE NEGATIVE IN THOUGHTS, BUT AGREEABLE WITH ME. IN TO SEE THIS AM. NO NEW CONCERNS NOTED. BED IN LOW POSITION, CALL LITE IN REACH, BED ALARM ON FOR SAFETY
--- NOTE | 2021-09-30 06:37 | NUR ---
MANAGER MERCHANDISING SUMMARY ADMITTED FOR CVA. PT IS ON COMFORT CARE. SHE HAD REFUSED PAIN MEDICATION EARLIER IN THE SHIFT AND HAD SOME DIFFICULTY SLEEPING BUT WAS ENCOURAGED TO TAKE MEDICATION FOR HER 7/10 RIB PAIN. SHE WAS ABLE TO SLEEP AFTER. PT VERY SOFT SPOKEN AND DEPRESSED.
--- NOTE | 2021-09-30 18:47 | NUR ---
COMFORT CARE SUMMARY PATIENT DENIED PAIN, NAUSEA, AND SHORTNESS OF BREATH. PATIENT SEEMED TO HAVE A LUCID MOMENT TODAY. WAS A&O X3. SAT AND TALKED WITH PATIENT THROUGHOUT SHIFT, ANSWERED QUESTIONS. PATIENT CALM AND COMFORTABLE ALL SHIFT. PATIENT WALKED IN HALLWAYS WITH RAMIREZ[ERVISION. PATIENT SHOWERED. PATIENT REALLY ENJOYED THAT.
--- NOTE | 2021-10-01 05:12 | NUR ---
PIE ICER MACHINE SUMMARY ADMITTED FOR ACUTE CVA POST OD. PT IS A DNR AND IS CURRENTLY ON COMFORT CARE. SHE HAS BEEN INDEPENDENT IN THE ROOM. MEDICATED X1 FOR LEFT RIP PAIN SECONDARY TO CPR IN ER. SHE IS VERY SOFT SPOKEN AND APPEARS DEPRESSED. [facility] [place] TODAY OR TOMORROW.
--- NOTE | 2021-10-01 13:26 | NUR ---
Spiritual care visit conducted. Pt talks at length about her guilt, shame and self-contempt. She tells me about the cost of her choices and the relational dysfunction it has caused. She tells me about the bridges she has burned by her actions and the attempts she has made to find peace and forgiveness. We explore sources of meaning and value, her spiritual beliefs and I hear a long list of confessions. We discuss possible ways of thinking about mistakes and failures and ways to live in freedom from the weight of shame and regret. We also look at steps to move forward and what a spiritual plan of care would entail for her. I normalize her experience and provide theological insights, recitation of scripture and prayer. Pt is beaming with vin from ear to ear at the end of the prayer and states that the conversation and prayer were extremely meaningful. Patient shows signs of catharsis and inner peace. Spiritual care will continue to remain available to patient and family.
--- NOTE | 2021-10-01 18:28 | NUR ---
COMFORT CARE SUMMARY PATIENT DENIED PAIN ALL SHIFT. PATIENT AMBULATED IN HALLWAY WITH SUPERVISION. VISITED IN AFTERNOON. PATIENT CALM AND COMFORTABLE THROUGHOUT SHIFT.
--- NOTE | 2021-10-02 05:09 | NUR ---
SHIFT SUMMARY PT HAS BEEN IN A MUCH CLEARER STATE IF MIND THIS EVENING. SHE WAS ABLE TO EXPRESS A NEED FOR PAIN MEDICATION FOR A SORE SPOT IN HER RIBS, AND ASKED FOR APPLESAUCE NOT PUDDING. SHE RECOUNTED A BIT OF HER WAKING UP IN THE HOSPITAL TO THIS RN. SHE WAS VERY COOPERATIVE AND COMPLIANT WITH CARE. SHE HAS BEEN SLEEPIN IN BED ALL NIGHT. BED IN LOWEST POSITION AND CALL LIGHT IN REACH
--- NOTE | 2021-10-02 10:32 | NUR ---
DR MORFIN ROUNDED ON PATIENT, CASE MANAGEMENT WORKING ON PLACEMENT TO A MEMORY CARE FACILITY
--- NOTE | 2021-10-02 12:09 | NUR ---
Comfort Care Visit Pt sitting in chair upon arrival. Pt reports mild chest pain and denies need for pain medication. Pt reports no other concerns at this time. Spoke with Primary RN Danitza and discussed case. Palliative Care will remain available.
--- NOTE | 2021-10-02 17:36 | NUR ---
PATIENT ALERT AND ORIENTED TO SELF, CONFUSED, FORGETFUL, IMPULSIVE THOUGHTS. PATIENT DENIES WANTING TO HURT HER SELF, INDEPEDNET IN ROOM AND UNIT, LS DIM BASES, CLEAR THROUGH OUT, ENCOURAGED COUGH AND DEEP BREATHING, PATIENT REPORTS FEELING CONSTIPATED, MEDICATED WITH PRN, MINIMAL INTAKE PUREE DIET THICKENED LIQUIDS. MAKES NEEDS KNOWN, CALL LIGHT WITH IN REACH, WILL RELAY TO PM RN, KEVIN
--- NOTE | 2021-10-03 05:03 | NUR ---
SHIFT SUMMARY PT STATES THAT SHE HAS TROUBLE SLEEPING AT NIGHT BECAUSE OF PAIN IN HER LEGS "THAT LITTLE BROWN PILL MAKES MY LEGS PINCH AND BURN" SHE REFUSED TO TAKE HER SENNA FOR THIS REASON, BUT WAS COMPLAINT WITH HER OTHER MEDICATIONS. SHE IS AALSO HAVING TROUBLE SLEEPING ECAUSE LAYING ON HER BACK CAUSES HER TO CHOKE. SHE IS CONCERNED ABOUT HER INABILITY TO SWALLOW WELL. SHE SEEMS MORE ALERT AND ABLE TO SPEAK HER NEEDS. INDEPENDENT IN THE ROOM. BED IN LOWEST POSITION AND CALL LIGHT IN REACH
--- NOTE | 2021-10-03 18:35 | NUR ---
SHIFT SUMMARY: ON COMFORT CARE. DENIED PAIN. TOOK A SHOWER TODAY, MADE HER BED. SHE HAD TWO BM'S TODAY, BUT STATED SHE DOESN'T WANT TO EAT BECAUSE WE ARE FEEDING HER PAPER AND IT IS "STOPPING ME UP." IN REALITY, HER MEAL TRAYS ARE COMING WITH "PAPER" WRITTEN ON THE PRINT OUT AND PAPER PLATES AND PLASTIC UTENSILS D/T PREVIOUS SI. INDEPENDENT IN ROOM. NO VISITORS TODAY.
--- NOTE | 2021-10-03 22:08 | NUR ---
PT IS AGITATESD THIS EVENING. SHE BELIEVED SHE WAS BEING FED PAPER AND SO IS REFUSING TO EAT OR DRINK ANYTHING STAFF PROVIDES. SHE IS ALSO REFUSING TO TAKE HER MEDICATIONS. SHE SAID SHE WANTS TO STAY "CLEAN AND FREE OF PECTIN POISONS."
--- NOTE | 2021-10-04 04:30 | NUR ---
SHIFT SUMMARY PT REFUSED ALL HELP, FOOD, AND MEDICATIONS THIS EVENING. STATED THAT SHE DOESN;T WANT ANY " INTERFERENCE" AND WANT TO "REMAIN CLEAN" STATES SHE HAD A HARD BM, BUT THIS RN DID NOT VISUALIZE IT. SHE IS ANXIOUS TO HELP THINGS TO DO AND TO KNOW WHAT IS HAPPENING NEXT FOR HER. PT WAS REASSURED THAT SHE IS DOING WELL AND WE ARE STILL LOOKING FOR PLACEMENT FOR HER. BED ON LOWEST POSITION AND CALL LIGHT IN REACH.
--- NOTE | 2021-10-04 10:16 | NUR ---
Comfort care visit. Case conferenced with and RN. Pt's exhibiting increased paranoia over past 24+ hours, per . Medications to be reviewed and adjusted per as indicated. RN reports change in diet order for soft mechanical as pt believes paper is being shredded and put in her food with puree diet. I attempted to give pt some art therapy supplies for distraction but pt politely declined having me leave them in her room. She states she is not bored and has her tablet to occupy time. Pt does not display any nonverbal indicators of pain. She appears anxious and depressed. reviewed dc plan with me. No facility found that will accept pt after extensive attempt per CM. Plan will be for pt to return home with per .
--- NOTE | 2021-10-04 18:12 | NUR ---
SHIFT SUMMARY: ON COMFORT CARE. REFUSED AFTERNOON DOSE OF SEROQUEL, STATING "I DON'T WANT ANY MORE DRUGS. I HAVE A DRUG PROBLEM." STILL EXPRESSING PARANOIA, THINKS SHE IS A BAD PERSON AND "JUST TAKING UP SPACE." DIET CHANGED TO SOFT TEXTURE AND SHE HAS EATEN 100% OF LUNCH AND DINNER TODAY, NO EVIDENCE OF ASPIRATION. TOOK A SHOWER, IS INDEPENDENT IN ROOM.
--- NOTE | 2021-10-05 03:40 | NUR ---
10/04/212137 PT SITTING UP IN BED, REPORTS EPIGASTRIC PAIN OF 4-5/10 THAT IS SHARP AND PRESSURE, DECLINES ANY MEDS AT THIS TIME. REPORTS N/T IN FEET THAT IS NOT NEW. PT HAS SOME ANXIETY, STATES SHE DOES NOT WANT TO TAKE ANY MEDS SHE DOES NOT WANT TO DEPEND ON THEM. PT MAKES SEVERAL STATEMENTS ABOUT MAKING A BAD DECISION AND NOT WANTING TO BOTHER ANYONE. ATTEMPTED TO REASSURE PT THAT WE ARE MORE THAN HAPPY TO TAKE CARE OF HER, THAT SHE WOULD NEVER BE CONSIDERED A BOTHER. ALSO TRIED TO EXPLAIN THAT TAKING A MED TO HELP WITH A SYMPTOM IS NOT DEPENDING ON THEM BUT IS HELPING HER HEAL. PT STILL DID NOT WANT TO TAKE ANY MEDS. PT DENIES NEED FOR ANYTHING AT THIS TIME. NO OTHER APPARENT SIGNS OF DISTRESS. CALL LIGHT IS IN REACH.
--- NOTE | 2021-10-05 03:44 | NUR ---
10/04/21 2330 PT SITTING IN BED, PLAYING GAME, NO APPARENT SIGNS OF DISTRESS. CALL LIGHT IS IN REACH.
--- NOTE | 2021-10-05 03:45 | NUR ---
0200 PT LYING IN BED, EYES CLOSED, APPEARS TO BE RESTING. BREATHING IS EVEN, UNLABORED. NO APPARENT SIGNS OF DISTRESS. CALL LIGHT IS IN REACH.
--- NOTE | 2021-10-05 04:02 | NUR ---
PT UP SITTING ON EDGE OF BED, TALKING ABOUT BIBLE VERSES AND SOMETHING ABOUT BEING PUT WITH THE WRONG FAMILY. VERY CONFUSED CONVERSATION. PT SHOWING A LITTLE ANXIETY BUT DOES NOT WANT ANYTHING FOR IT. DENIES PAIN. NO OTHER APPARENT SIGNS OF DISTRESS. CALL LIGHT IS IN REACH.
--- NOTE | 2021-10-05 04:04 | NUR ---
PT IS AAO X 1, ON RA. REPORTED EPIGASTRIC PAIN BUT DOES NOT WANT MEDS OF ANY KIND AT THIS TIME. PT HAS A LITTLE BIT OF ANXIETY. HAS SOME CONFUSED CONVERSATIONS.
--- NOTE | 2021-10-05 06:41 | NUR ---
PT SITTING UP IN BED, NO APPARENT SIGNS OF DISTRESS. CALL LIGHT IS IN REACH. NO OTHER CHANGES THIS SHIFT.
--- NOTE | 2021-10-05 19:18 | NUR ---
SHIFT SUMMARY: ON COMFORT CARE. DENIES SI. STILL A&O X 1, CONFUSED, BUT PLEASANT. SHE WAS MUCH MORE INTERACTIVE WITH STAFF TODAY, HAD A SHOWER AND CHANGED HER LINENS. SHE IS NOW EATING 80-100% OF HER MEALS, TAKING PO FLUIDS WITH NO SIGNS OF ASPIRATION. HOARSNESS OF HER VOICE HAS ALSO IMPROVED. HER LONG TIME FRIEND TIA VISITED TODAY; THIS MADE GEOVANNI VERY HAPPY.
--- NOTE | 2021-10-06 05:26 | NUR ---
SHIFT SUMMARY: PT IS ALERT AND ORIENTED. PT IS CALM AND COOPERATIVE WITH CARE. PT CALLS APPROPRIATELY. PT DENIES PAIN, NAUSEA, VOMITING, AND SOB. NO ACUTE CHANGES OR COMPLICATIONS THIS SHIFT. WILL CONTINUE TO MONITOR.
--- NOTE | 2021-10-06 18:20 | NUR ---
SHIFT SUMMARY PT CONFUSED BUT EASILY RE-DIRECTS. NO CLINICAL CHANGES NOTED. VSS. APPETITE GOOD. AMBULATION IS STRONG & STEADY. PLAN IS FOR SNF PLACEMENT WHEN BED AVAILABLE.
--- NOTE | 2021-10-07 06:24 | NUR ---
SHIFT SUMMARY PATIENT ALERT AND ORIENTED X2. HAD NO COMPLAINTS OF PAIN OR SHORTNESS OF BREATH. NO ACUTE ISSUES NOTED OVERNIGHT. CALL LIGHT WITHIN REACH. REPORT GIVEN TO ONCOMING RN.
--- NOTE | 2021-10-07 11:22 | NUR ---
Spiritual Care Visit - after consulting with floor nurse. Pt. is standing by the window in her room. Pt. begins verbalizing mnany concerns that are presented with evidence of anxiety and paranoia. With a calming presence I invite the Pt. to sit down. Pt. continues to verbalize scattered thoughts with an overall sense of Guilt for past indescretions and sin. Pt. has notes in her abhijeet bible that she requested this cook seafood to read. This cook seafood will honor her request and return laterin the day to return the bible. Prayed with Pt. Pt. would have contionued verbalizing random thoughts, but this cook seafood gracefully excused himself. Will return to Pts. room this PM if possible.
--- NOTE | 2021-10-07 15:02 | NUR ---
Spiritual Care follow up. Pt. is sitting in bed playing a video game. Pt. welcomes visit. Return the Pts. bible and was able to respond to one of her written concerns. Pt. displayed evidence of understanding and agreement. Pt. verbalized gratitude for the spiritual care visit.
--- NOTE | 2021-10-07 18:30 | NUR ---
SHIFT SUMMARY NO CLINICAL CHANGES TODAY. REMAINS CONFUSED. SHE DID HAVE ONE EPISODE OF CRYING AND BEING TEARFUL OVER BELIEVING HER 39 YR OLD DTR HAD JUST . PLACED CALL TO HOR[facility]ER REQUESTING A VISIT. HORSE BREEDER DID COME AND SPENT TIME WITH HER. AFTER THE VISIT SHE WAS ABLE TO STOP CRYING AND RESTED IN HER ROOM. IS INDEPENDENT IN THE ROOM FOR RESTROOM USE. APPETITE IS MARGINAL.
--- NOTE | 2021-10-08 04:47 | NUR ---
SHIFT SUMMARY: A/OX 2, ADLIB AMBULATION IN ROOM, INDEPENDENT REPOSITIONING IN BED AND ADL'S. CONTINUES TO BE PLEASANTLY CONFUSED WITH EXPRESSED PARANOIA THAT STAFF IS MAD SHE IS IN THE HOSPITAL AND HYPERFIXATION THAT SHE IS SINFUL FOR RECEIVING MORE FOOD THAN SHE CAN EAT AND THEREFORE IT WILL GO TO WASTE- PER PT. PT CONTINUES TO DECLINE ALL MEDICATIONS. CONTINUES TO REPORT THAT SHE IS COMFORTABLE WITH NO PAIN. BED REMAINS IN LOW POSITION, CALL ZAMUDIO AND BELONGINGS IN REACH.
--- NOTE | 2021-10-08 08:20 | NUR ---
PT REFUSES ALL CARE. PT STATES THAT SHE DOESN'T WANT ANY BREAKFAST, OFFERED SEVERAL TIMES. PT STATES SHE CAN'T ACCEPT [facility], AND SHE DOESN'T NEED THE FOOD. DECLINES SHOWER. PT STATES THAT SHE NEEDS TO DO SOMETHING GOOD BEFORE SHE DIES TO REPAY ALL THE WRONG SHES "PUT UPON" HER . APPEARS TO HAVE A UATSDIN PERSPECTIVE THAT SHE MUST DONATE HER EYES OR HER KIDNEYS TO SOMEONE IN NEED. PT DENIES PAIN. PT REFUSES TO TAKE MEDICATION. RN AND FORENSIC INVESTIGATOR LEFT THICKENED WATER IN ROOM, ENCOURAGING PT TO DRINK.
--- NOTE | 2021-10-08 13:50 | NUR ---
PT CONTINUES TO DECLINE FOOD, WATER. MULTIPLE ATTEMPTS AT ENCOURAGING PO INTAKE, OFFERING FOOD CHOICES, SITTING WITH PT. PT STATES SHE CANNOT ACCEPT IMELDA, AND CANNOT EAT THE FOOD FROM THE HOSPITAL. STATES HER IS LIVING UNDER A BRIDGE IN [place] AND WASHING IN [place]. STATES HER TOOK ON HER DEBTS AND SHE NEEDS TO DO SOMETHING GOOD TO REPAY THEM. RN UPDATED HEADING UP MACHINE OPERATOR WITH CONTINUED CONCERNS FOR LACK OF NUTRITION. PT IS ON COMFORT CARE, PLAN IS TO DISCHARGE WITH HOME HEALTH/HOSPICE.
--- NOTE | 2021-10-08 15:36 | NUR ---
REASSURANCE AND ENCOURAGEMENT PROVIDED VIA GENTLE TOUCH, THERAPEUTIC COMMUNICATION. PT IS REFUSING ALL DRINK, FOOD, PERSONAL CARE.
--- NOTE | 2021-10-08 15:40 | NUR ---
GENTLE TOUCH, THERAPEUTIC COMMUNICATION.
--- NOTE | 2021-10-08 18:25 | NUR ---
Pt is on comfort care. She is ambulating in her room without difficulty. She did interact with me by making eye contact, but the statements she made were non-sensical. She did answer, "No" when I asked about pain or SOB. Palliative care to remain involved.
--- NOTE | 2021-10-08 18:54 | NUR ---
PT LYING IN BED, FACING THE WALL. SHE DECLINES OFFERS OF FOOD. RN/APPLICATION SUPPORT TECHNICIAN LEFT AN OPEN THICKENED LIQUID DRINK ON HER BEDSIDE TABLE EARLIER , WHICH SHE DID DRINK SOMETIME DURING THE DAY.
--- NOTE | 2021-10-08 18:55 | NUR ---
PT IS SITTING, LOOKING OUT THE WINDOW. ALTERNATIVELY PACES BY THE WINDOW. RN ATTEMPTED TO TALK WITH PT, PT STATED, "GOOD BYE" AND APPEARED TO WANT TO BE LEFT ALONE. PT NOW STANDING AT OPEN DOOR, WATCHING THE HALLWAY.
--- NOTE | 2021-10-08 19:12 | NUR ---
SHIFT SUMMARY PT DRANK 120 MLS OF THICKENED LIQUID TODAY. EARLIER TODAY PT WAS MORE EMOTIONAL - REFUSING CARE BECAUSE SHE FELT LIKE SHE DIDN'T DESERVE THE CARE. STATED THAT SHE HAD TO MAKE UP FOR THE WRONGS SHE HAD COMMITTED. LATER THIS SHIFT, PT BECAME WITHDRAWN AND REFUSED TO INTERACT WITH STAFF. WHEN STAFF ENTERED ROOM, GEOVANNI WOULD TURN HER HEAD AWAY AND NOT RESPOND. PT HAS HX OF MAJOR DEPRESSION, DEMENTIA WITH SEVERE FUNCTIONAL DECLINE IN THE PAST TWO YEARS. NO IV ACCESS. PT DENIED ALL MEDS AND PERSONAL CARE. SHE DID GIVE HERSELF A SPONGE BATH, BUT DECLINED A SHOWER. CURRENT PLAN IS TO CONTINUE COMFORT CARE WITH HOME HEALTH/HOSPICE UPON DISCHARGE.
--- NOTE | 2021-10-09 03:45 | NUR ---
SHIFT SUMMARY: PT DECLINES TO CONVERSE OR COMMUNICATE WITH STAFF THROUGHOUT THE ENTIRE SHIFT. OFTEN WHEN ROUNDING PATIENT IS ALERT, SITTING IN BED PLAYING A GAME; PT IS ASKED ABOUT PAIN, COMFORT OR IF SHE NEEDS ANYTHING. PT WILL MAKE EYE CONTACT WITH STAFF AND LOOK AWAY WHEN QUESTIONS ARE BEING ASKED, AND DECLINES TO ANSWER. IT WAS REPORTED DURING SHIFT CHANGE FROM DAY SHIFT RN, PT TOLD STAFF TO "GET OUT OF MY ROOM". UNSURE IF PATIENT IS NOT TRUSTING OF STAFF MEMBERS, OR SIMPLY WANTS TO BE LEFT ALONE. PT CONTINUES TO DECLINE ALL MEDICATIONS, FOOD OR DRINK. REMAINS INDEPENDENT IN ROOM WITH AMBULATION AND ADL'S. PT IS VERY WITHDRAWN, FLAT AND APPEARS TO BE VERY DEPRESSED. - BED REMAINS IN LOW POSITION, CALL ZAMUDIO AND BELONGINGS IN REACH.
--- NOTE | 2021-10-09 09:04 | NUR ---
PATIENT SITTING ON SIDE OF BED, ASKS NOT TO BE TOUCHED. STATES SHE DOESN'T NEED ANYTHING. REFUSING TO EAT. ASKING NURSE TO GIVE FOOD TO THE BOY (THINKS SOMEONE IS BEING SACRIFICED). THINKING IS NOT LOGICAL, APPEARS TO BE DELUSIONAL THOUGHTS AREN'T BASED IN REALITY.
--- NOTE | 2021-10-09 10:24 | NUR ---
PATIENT APPEARS DELUSIONAL, SHE ASKED THIS NURSE "WHICH ONE OF MARHTA CHILDREN ARE YOU? i KNOW YOU ARE ONE OF THEM. YOU ARE NOT A CAPTAIN ROOM SERVICE OR A NURSE, YOUR ONE OF HIS CHILDREN, ALL OF THIS IS A LIE". SHE REFUSED ALL MORNING MEDICATIONS.
--- NOTE | 2021-10-09 12:08 | NUR ---
CHECKED IN ON PATIENT AND OFFERED ICE CREAM, WATER OR SOMETHING ELSE TO EAT. SHE STATED "i KNOW WHO YOU ARE, YOUR YUDY, OR MARGOT. YOU ARE THE WORST ONE, YOUR SADISTIC AND ALWAYS HAVE BEEN, GO AWAY ELENA". THE PATIENT WAS TOLD THAT IF SHE CHANGES HER MIND ABOUT SOMETHING TO EAT, SHE COULD JUST LET ME KNOW.
--- NOTE | 2021-10-09 16:36 | NUR ---
OFFERED FLUIDS, ICE CREAM. PATIENT AVOIDING EYE CONTACT. SKILL OF IGNORING IS EXCELLENT. CONTINUES TO DO CROSSWORD PUZZLE WHILE AVOIDING ALL INTERACTION.
--- NOTE | 2021-10-09 18:46 | NUR ---
PATIENT STILL WORKING ON [employer] PUZZLE. DOESN'T RESPOND TO ANY NEEDS BUT INTSTEAD, LOOKS AT THIS NURSE WITH HALF A SMILE AND SAYS "GOOD BYTracy JIMENES". APPEARS TO BE IN NO DISTRESS. APPEARS TO BE HAVING DELUSIONAL THOUGHTS.
--- NOTE | 2021-10-09 18:48 | NUR ---
PATIENT APPEARS TO BE DELUSIONAL AND HAVE DISORGANIZED THINKING. DID NOT ACCEPT FOOD OR FLUIDS. DID NOT APPEAR TO BE ATTEMPTING TO SELF HARM IN ANY WAY THIS SHIFT, OTHER THAN REFUSING NUTRITION/HYDRATION.
--- NOTE | 2021-10-10 05:37 | NUR ---
SHIFT SUMMARY: PT CONTINUES TO DECLINE VERBAL COMMUNICATION WITH STAFF. WILL OCCASIONALLY MAKE EYECONTACT WHEN STAFF IS SPEAKING TO PATIENT, PT WILL QUICKLY LOOK AND TURN AWAY. PT CONTINUES TO DECLINE ALL FOOD, WATER AND ANY MEDICATIONS. WHEN AWAKE PATIENT WILL OFTEN SIT ON EDGE OF BED LOOKING OUTSIDE THE WINDOW, COMPLETING BOOK PUZZLES OR PLAYING A GAME ON "SWITCH" DEVICE. PT REMAINS STABLE WITH AMBULATION, INDEPENDENT IN COMPLETING ADL'S SUCH USING THE BATHROOM AND GIVING SELF A PARTIAL BATH. BED REMAINS IN LOW POSITION, CALL ZAMUDIO AND BELONGINGS IN REACH, TRIPPING HAZARDS REMOVED IN ROOM.
--- NOTE | 2021-10-10 09:31 | NUR ---
PATIENT REFUSING FOOD AND WATER. STATED "NO ONE HERE IS A NURSE. THIS IS NOT A MEDICAL FACILITY." SHE IS IRRITABLE, WILL NOT ANSWER QUESTIONS. ENCOURAGED HER TO TALK, BUT SHE WILL NOT. NEW ICE WATER AT BEDSIDE. WILL CONTINUE TO MONITOR.
--- NOTE | 2021-10-10 10:01 | NUR ---
APPEARS TO BE SLEEPING.
--- NOTE | 2021-10-10 13:02 | NUR ---
CONTINUES TO REFUSE CARE, FOOD, AND WATER. PARANOID AND DELUSIONAL, IRRITABLE. ATTEMPTED TO LEAVE; WAS FOUND WALKING DOWN THE MCKOY TOWARD THE EXIT NEAR ROOM 356. ESCORTED BACK TO HER ROOM WITHOUT INCIDENT.
--- NOTE | 2021-10-10 16:18 | NUR ---
PATIENT TRANSFERRED TO ROOM 350 D/T WANDERING AND THREATENING TO LEAVE. FTF REPORT GIVEN TO Rocco BARRIENTOS RN.
--- NOTE | 2021-10-10 16:19 | NUR ---
TRANSFERRED FROM MEDICAL ROOM 339, REPORT FROM ELEANOR KAYE, PATIENT TRIED TO GRAB THE PHYSICIANS CHAIR IN THE ROOM TO SMASH IT AGAINST THE WINDOWS SO SHE COULD JUMP OUT AND KILL HERSELF, MONITORS ON, REPORTED TO CHARGE CHUCHO, PATIENT MAKING COMMENTS "IM NOT WORTH IT, IA M THE SCUM ON THE FLOOR" PATIENT NON REDIRECTABLE TO POSTIVE SELF TALK. CALL LIGHT WITH SHORT CORD IN ROOM, PHONE REMOVED, CHAIRS REMOVED, LOOSE ITEMS REMOVED, CHARGE NURSES CONSULTING ON MONITOR NEEDS
--- NOTE | 2021-10-10 16:43 | NUR ---
SUICIDE REASSESSMENT DONE, CHUCHO REESE RN PRESENT, MONITORS ON NOW, NO SUICIDE PRECAUTIONS NEEDED PER REASSESSMENT
--- NOTE | 2021-10-10 16:55 | NUR ---
REPORTED TO DR LINCOLN PATIENT MOVED TO 350, PATIENT GRABBED CHAIR TO TRY AND BREAK THE WINDOW TO LEAVE AND REPORTED THE SI REASSESSMENT DID NOT CALL FOR SI MONITOR, BUT THE MONITOR IS ON THE PATIENT
--- NOTE | 2021-10-11 04:43 | NUR ---
PT LYING ON COUCH AT START OF SHIFT UNWILLING TO GET IN THE BED AND BE "CHARGED". PT DID NOT EAT DINNER OR TAKE ANY MEDICATIONS. PT EVENTUALLY GOT IN BED AND SLEPT MOST OF THE NIGHT. AT 0400 PT WANDERED INTO NEIGHBORS ROOM TO COMFORT HIM WHEN HE WAS SCREAMING OUT FOR HELP. PT ESCORTED BACK TO ROOM AND WENT BACK TO BED.
--- NOTE | 2021-10-11 07:17 | NUR ---
REPORT FROM PM RN, PATIENT PASING IN ROOM, ALERT, CONFUSED, PATIENT THINKS SHE KNOWS THE NAMES OF THE PATIENTS, PATIENT REORIENTED, UP IN ROOM, CALL LIGHT WITH IN REACH, CAMERA MONITOR ON, WCTM
--- NOTE | 2021-10-11 16:54 | NUR ---
PATIENT CONTINUED TO REFUSE FOOD, DRINK, MEDICATIONS, SHOWER, AND VITAL SIGNS, COMFORT CARE, PATIENT VERY CONFUSED AND PARANOID, MAKES COMMENTS "THIS ISNT A HOSPITAL, DR FOSTER ISNT A DOCTOR, AND YOUR NOT A NURSE" PATIENT THINKS THE OTHER PATIENTS IN THE [facility] AND THINKS SHE KNOWNS THERE NAME, PATIENT GETS IRRITABLE WITH REORIENTING. PATIENT SAID "YOU KNOW THAT SABA IN THAT ROOM, THEY ARE MAKING HIM DRINK HIS OWN PEE", PATIENT REORIENTED, FORGETS COMMENTS AND STILL MAKES COMMENTS THAT SHE IS NOT WORTH OF ANY CARE OR FOOD WHEN OTHER PEOPLE NEED THE FOOD. TONGER AWARE. WORKING ON HOME WITH HOSPICE ON WEDNESDAY, AWARE, PATIENT HAS NOT TRIED TO LEAVE THE UNIT, STAYS IN ROOM, STEADY GAIT, CALL LIGHT WITH IN REACH, WILL RELAY TO PM MIKKI
--- NOTE | 2021-10-11 17:30 | NUR ---
PATIENT REFUSES ALL CARE, FOOD, ASSESSMENTS, VSS, AND IS PARANOID OF SURROUNDINGS, UNABLE TO REORIENT, BECOMES IRRITATED WITH REORIENTING, INDEPENDENT IN ROOM, STEADY GAIT
--- NOTE | 2021-10-11 17:34 | NUR ---
PATIENT REFUSING ALL CARE, COMFORT CARE
--- NOTE | 2021-10-11 20:00 | NUR ---
PT RESTING QUIETLY IN BED. ON RA AND COMFORT MEASURES. INDEP IN RM. CALL LT IN REACH.
--- NOTE | 2021-10-11 21:45 | NUR ---
PT REFUSED ALL MEDS. STATES SHE DOESN'T NEED THESE MEDICATION. WANTS TO BE LEFT ALONE. CALL LT IN REACH.
--- NOTE | 2021-10-11 22:20 | NUR ---
PT RESTING QUIETLY. CALL LT IN REACH.
--- NOTE | 2021-10-12 00:20 | NUR ---
PT RESTING QUIETLY. CALL LT IN REACH.
--- NOTE | 2021-10-12 02:02 | NUR ---
PT CONTINUES TO REST QUIETLY. CALL LT IN REACH.
--- NOTE | 2021-10-12 05:00 | NUR ---
SHIFT SUMMARY: COMFORT MEASURES PT. REFUSED MEDS THIS SHIFT. STATES WE DON'T KNOW WHAT KIND OF MEDS SHE TAKES AND I WON'T TAKE THEM. REFUSED ALL CARE AND WANTS TO BE LEFT ALONE. PT RESTED ALL SHIFT. NO ACUTE CHANGES. WILL PROVIDE CARE UNTIL SHIFT REPORT. CALL LT IN REACH.
--- NOTE | 2021-10-12 07:22 | NUR ---
REPORT FROM PM RN LOU, PATIENT AWAKE IN DOOR WAY, SAYING SHE DOES NOT HAVE MONEY TO PAY FOR THIS STAY, PATIENT REDIRECTED, EDUCATED, NO DISTRESS, CAMERA MONITOR ON, WCTM
--- NOTE | 2021-10-12 17:10 | NUR ---
PATIENT MORE EMOTIONAL TODAY, PATIENT STILL VERY PARANOID AND CONFUSED, PATIENT IS STARTING TO CRY WHEN REDIRECTED OR REORIENTED, PATIENT WANTS TO WALK INTO PATIENTS ROOM BECAUSE THAT ROOM NEEDS HER KIDNEY OR PATIENTS ARE BEING TORTURED AND MADE TO DRINK THEIR OWN URINE. PATIENT INDEPEDENT IN ROOM, REFUSED ALL CARE AGAIN TODAY
--- NOTE | 2021-10-12 19:36 | NUR ---
RECEIVED REPORT FROM DAYSHIFT NURSE. THIS NURSE ENTERED THE RM PT IS SITTING ON THE DAY BED POINTING AND SAYING DON'T BRING ANYTHING IN TAKE THE WATER OUT AND JELLO. TOOK A ROOT BEER FLOAT AND LEFT IN RM. TOLD PT IT WAS FOR HER AND LEFT THE RM.
--- NOTE | 2021-10-12 22:11 | NUR ---
PT IS IN BED AT THIS TIME RESTING QUIETLY. HAS BEEN REFUSING ALL OFFERS OF FOOD, CARE, AND MEDS. INDEPENDENT IN .
--- NOTE | 2021-10-13 01:54 | NUR ---
PT RESTING QUIETLY. CALL LT IN REACH.
--- NOTE | 2021-10-13 04:17 | NUR ---
SHIFT SUMMARY: REFUSED MEDS, OFFERS OF FOOD, AND CARE THIS SHIFT. TOLD STAFF NOT TO BRING ANYTHING IN HER ROOM AND TO THROW OUT THE CUPS OF WATER BROUGHT IN EARLIER. CONINUES TO FEEL PARANOID OF EVERYTHING. RESTED WELL IN BED. NO ACUTE CHANGES. WILL CONTINUE TO PROVIDE CARE UNTIL SHIFT REPORT.
--- NOTE | 2021-10-13 08:30 | NUR ---
PT UP IN HER ROOM STEADY ON HER FEET. REPORTS THAT SHE HAS NO NEEDS AT THIS TIME. PT APPEARS TO BE BREATHING EASILY . HAS CONFUSED SPEECH
--- NOTE | 2021-10-13 11:13 | NUR ---
PT AWAKE UP IN HER ROOM APPEARS TO BE BREATHING EASILY. DECLINED AM MED AND BREAKFAST
--- NOTE | 2021-10-13 16:59 | NUR ---
PT UP IN HER ROOM APPEARS TO BE BREATHING EASILY DECLINED BREAKFAST AND MEDICATIONS THIS AM
--- NOTE | 2021-10-13 17:00 | NUR ---
PT UP ON THE BENCH IN HER ROOM . SHAKES HER HEAD NO EVRYTIME I WALK IN THE ROOM. PT REFUSES FLUIDS, PT REFUSED LUNCH. PT CONTINUES TO REFUSE MEDICATION AND ANY CARE.
--- NOTE | 2021-10-13 17:02 | NUR ---
PT UP IN THE ROOM SITING ON THE BENCH IN HER ROOM. TIME WAS SPENT TRYING TO ENCOURAGE THE PT TO TAKE HER MEDICATION AND A LEAST EAT AND DRINK SOMETHING. THE PT SAID THAT SHE WOULD NOT TAKE ANYTHIG AT ALL AND WHEN ASKED WHY, SHE SAID THAT SHE JUST WANTED TO . AN ETHICS REVIEW ORDER WAS SET IN PLACE THIS AM TO HELP DECIDE IF IT WAS ETHICAL TO GIVE THE PT MEDICATION AGAINST HER WILL AT THIS TIME. WILL CONTINUE TO MONITOR AND ASSESS FOR CHANGES
--- NOTE | 2021-10-13 17:09 | NUR ---
PT CONTINUES TO SIT UP AT THE SIDE OF THE BED AT THIS TIME. PT APPEARS TO BE BREATHING EASILY. DR. CARABALLO WAS IN TO SEE THE PT THIS AM AND A DISCUSSION ON WETHER OR NOT THE PT MAY MORE OR LESS BE MORE COOPERATIVE AND COMPLIANT WITH HER CARE IF SHE WAS GIVEN AN IM SHOT OF ZYPREXA. BEING THAT THE PT IS ON COMFORT CARE AND REFUSING ANY MEDICATION THIS RN FELT THAT IT MAY BE AN ETHICS ISSUE. PALLIATIVE CARE WAS AKED TO CONSULT THEY ALSO FELT THAT THE PT MAY BENIFIT FROM THE SHOT. IT WAS DECIDED THAT ETHICS SHOULD REVIEW THE CASE BEFORE MOVING ON AGAINST THE PT'S WISHES. CALL LIGHT IN REACH, WILL CONTINUE TO MONITOR AND ASSESS FOR CHANGES.
--- NOTE | 2021-10-13 18:50 | NUR ---
Review of pt with nursing ethic consult requested. pt would benefit from medications for her parnoin and repetatvie thoughts. Struggle is refusal. Pt unable to process conversations she repeats over and over. We cannot place her in a facility it would be unsafe to send her home in this state. Will discuss further with hospice team and care managers. Will see if we can get soem of the compound cream for her.
--- NOTE | 2021-10-14 04:45 | NUR ---
SHIFT SUMMARY A/O 2-3, WITHDRAWN/PARANOID. REFUSES ALL CARE, MEDICATIONS, DRINKS AND FOOD THIS SHIFT. APPEARED TO SLEEP MOST OF THE NIGHT. BED IN LOWEST POSITION WITH CALL LIGHT IN REACH. WILL CONTINUE TO MONITOR AND REPORT TO ONCOMING RN.
--- NOTE | 2021-10-14 08:41 | NUR ---
PT IS SITTING IN ROOM AND OCCASIONALLY WALKS TO BEDROOM DOOR. PT HAS REFUSED BREAKFAST.
--- NOTE | 2021-10-14 09:32 | NUR ---
SAT IN ROOM AND SPOKE WITH PT FOR A BIT. PT WAS CONCERNED THAT THERE WAS A "BABY DUCK ON THE ROOF THAT COULDN'T GET DOWN". WE LOOKED OUT THE WINDOW FOR THE DUCK BUT WAS ABLE TO CONVICE HER THAT IT FOUND A WAY DOWN. PT REFUSED A SHOWER AND MEDS STATING THAT SHE DIDN'T WANT TO USE UP THE FOOD OR WATER. ATTEMPTED TO REASURE PT THAT THERE WAS PLENTY OF FOOD AND WATER FOR HER BUT PT STILL REFUSED. TOLD PT THAT I WAS HERE TO HELP HOWEVER I CAN AND THAT I'D BE IN TO CHECK ON HER AGAIN SOON.
--- NOTE | 2021-10-14 10:00 | NUR ---
ETHICS CONSULT received and processed. Per Shimon Liu, if the principal is unable to comprhend basic medical information or engage reliably in clinical decision making, her incapacitation at minimum, necessitates the involvement of a proxy to determine the suitability of utilizing treatments, that by all appearences, are impliedto be disagreeable or unpreferred, as measured by the principal's verbal or physical gesticulations of protest. It should be remembered however, that a compromised neurological standing, does not automatically make the so-called protestations or refusals of the principal unreasonable or meaningless. If is is suspected that the principal, though grossly affected by disorganized cognition or underlying disease, grasps at least in a fundamental sense, that she does not want IM therapies, then proceeding with such interventions would violate her dignity of choice and autonomy of personhood. If the principal's , as a witness to her life and history, believes that his 's objections are purely and exclusively arising out of confusion, and that she would be amenable to such therapies otherwise, than I would say that it would be ethically appropriate, if not essential to proceed with such a course, especially if this is the only path to comfort. Submitted on behalf of Shimon Liu. If there are any questions please call him at .
--- NOTE | 2021-10-14 11:03 | NUR ---
PT IS SITTING IN ROOM WITH BOOK AT HER SIDE. STILL REFUSING CARE. REMININDED HER THAT I WAS STILL HER TO HELP AND TO LET ME KNOW IF SHE NEEDED ANYTHING.
--- NOTE | 2021-10-14 17:51 | NUR ---
PT IS SITTING IN ROOM AND APPEARS TO BE USING AN ELECTRONIC DEVICE.
--- NOTE | 2021-10-14 17:53 | NUR ---
PT HAS SISTER AND NEPHEW IN ROOM WITH HER. PT INTORDUCED ME TO SISTER AND I WAS TOLD THEY CAME FROM [place] TO VISIT. PT APPEARED MORE RELAXED AND ALLOWED HER FAMILY TO SIT CLOSE TO HER.
--- NOTE | 2021-10-14 17:57 | NUR ---
PT TALKED WITH ME AT THE DOOR OF HER ROOM. SHE STATED THAT SHE NEEDED A SHOWER SOON BUT WHEN I OFFERED A SHOWER SHE STATED SHE DID NOT WANT TO TAKE WATER FROM THE OTHER PATIENTS. SHE STILL DID NOT WANT A SHOWER DESPITE MY REASURRANCE THAT SHE WOULD NOT BE TAKING WATER FROM ANY ONE ELSE.
--- NOTE | 2021-10-14 19:21 | NUR ---
SHIFT SUMMARY PT REFUSED BREACKFAST AND LUNCH TODAY WELL HER MEDICATIONS. SHE ALSO REFUSED A SHOWER WHEN OFFERED. PT HAS A RECCOMENDATION FOR PSYCIATRIC PLACEMENT. PT'S SISTER AND NEPHEW CAME TO VISIT HER IN THE AFTERNOON. LATER PT ASKED ABOUT DINNER AND WITH SOME PROMPTING SHE AGREAD TO EAT AND ATE 100% OF HER DINNER. PT ALSO SAID SHE WOULD LIKE TO TAKE HER COLACE TONIGHT. GAVE REPORT TO ONCOMING NURSE.
--- NOTE | 2021-10-15 04:42 | NUR ---
SHIFT SUMMARY A/O 2-3, FORGETFUL. PT MAKING SOME SMALL CONVERSATION WITH STAFF THIS SHIFT AND DRINKING ICE WATER. REFUSED ANY FOOD ITEMS. COMFORT CARE MEASURES IN PLACE. NO ACUTE CHANGES AT THIS TIME. BED IN LOWEST POSITION WITH CALL LIGHT IN REACH. WILL CONTINUE TO MONITOR AND REPORT TO ONCOMING RN.
--- NOTE | 2021-10-15 07:58 | NUR ---
PT ASKED TO SHOWER SO I PROVIDED HER WITH SUPPLIES AND HELPED HER SET UP. PT SHOWERED INDEPENDENTLY
--- NOTE | 2021-10-15 10:54 | NUR ---
PT HAD SISTER AND BROTHER VISITING WITH HER IN ROOM.
--- NOTE | 2021-10-15 11:55 | NUR ---
PT IS SITTING IN ROOM AND APPEARS TO BE USING HER ELECTRONIC DEVICE.
--- NOTE | 2021-10-15 13:12 | NUR ---
PT ATE ALL HER LUNCH AND BROUGHT TRAY TO THE DOOR. REMINDED PT THAT I WAS HERE TO HELP AND LET ME KNOW IF SHE NEEDED ANYTHING AND THAT I WOULD BE BACK TO CHECK ON HER LATER.
--- NOTE | 2021-10-15 17:02 | NUR ---
SHIFT SUMMARY PT WAS MORE RECEPTIVE TO CARE TODAY. I SPOKE WITH PT EARLY IN THE MORNING AND SHE AGREED TO TAKE A SHOWER. SHE ALSO ASKED FOR JUICE, AND PREFERED APPLE JUICE. PT ALSO AGREED TO TAKE COLASE AND SENNOKOT BUT REFUSED TO TAKE SEROQUEL. PT HAD FAMILY VISIT, INCLUDING HER . PT ATE 100% OF HER BREAKFAST AND LUNCH. PT WAS TAKEN OFF COMFORT CARE.
[2021-10-16 05:32] LABS: Albumin, Blood 3.2 g/dL (3.4-5.0); Anion Gap 4 mmol/L (6-16); Blood Urea Nitrogen 19 mg/dL (8-24); CO2, Blood 31 mmol/L (21-32); Calcium, Blood 9.2 mg/dL (8.5-10.1); Chloride, Blood 108 mmol/L (98-108); Creatinine, Blood 0.73 mg/dL (0.40-1.00); Glomerular Filtration Rate 87 (60-); Glucose, Blood 99 mg/dL (70-99); Phosphorus, Blood 2.8 mg/dL (2.5-4.9); Potassium, Blood 4.1 mmol/L (3.5-5.5); Sodium, Blood 143 mmol/L (136-145)
--- NOTE | 2021-10-16 07:18 | NUR ---
PT REPORTING THAT ITS BEEN "OVER 3 WEEKS" SINCE HER LAST BM. BOWEL SOUNDS HYPOACTIVE. PER REPORT PT HAS HAD VERY POOR PO INTAKE HOWEVER YESTERDAY PT HAD GOOD APPETITE. PT OFFERED SUPPOSITORY THIS MORNING AND WILLING TO TRY. PT BP ALSO 89/66 HOWEVER CHECKED AGAIN 101/69, PT AT THIS TIME SITTING UP PLAYING HER SWITCH. PT THIS MORNING DID NOT WANT LAB DRAWS SHE SAID THERE WAS NO POINT. AFTER ENCOURAGEMENT PT WILLING TO ALLOW LAB DRAW.
--- NOTE | 2021-10-16 17:52 | NUR ---
EDIL ZUNIGA PT IS IN HER ROOM PLAYING ON HER GAME. SHE HAS BEEN IN GOOD SPIRIRTS TODAY, NO ATTEMPTS OR MENTINS OF SUICIDE AND COOPERATIVE WITH PILLS. SHE HAS STATED THAT SHE IS CONSTIPATED AND NEEDS MORE BOWEL CARE, BUT REFUSED MIRALAX, BUT WAS HAPPY WITH THE PRUNE JUICE OFFERED. CAME AND SPOKE WITH THE PT AND REPORTED HER MENTAL HEALTH HAD IMPROVED TODAY AD SHE WAS NOT A RISK AT THIS TIME. FAMILY CAME A SPOKE WITH THE PT WHICH IMRPROVED HER SPIRITS. BED IN LOWEST POSITION AND CALL LIGHT IN REACH
--- NOTE | 2021-10-17 07:59 | NUR ---
PT A/OX4 VERY PLEASANT. NO ACUTE CHANGES OVERNIGHT. PT BELKYS TO SLEEP T/O THE SHIFT.
--- NOTE | 2021-10-17 18:39 | NUR ---
SHIFT SUMMARY PTN QUIET SPOKEN, FLAT AFFECT. KEEPS ROOM DARK SO THAT SHE CAN BETTER SEE HER ROSE MARIE MACHINE. SHE SAID SHE PLAYS A FARMING GAME TO KEEP HER BUSY. PTN LOW SI SCALE. APOLOGIZES FOR BEING A "PAIN." A&O X3, ACTIVITY INDEPENDENT. DIET SOFT. LAST BM 10/17. ORDER TO START NEW MEDICATION HS. PLAN FOR PLACEMENT. CONTINUE TO MONITOR.
--- NOTE | 2021-10-18 17:51 | NUR ---
SHIFT SUMMARY PRN A&O X3-4, INDEPENDENT, QUIET AND WITHDRAWN. FILLS HER DAY IN DIM ROOM PLAYING A GAME ON HER GAME DEVICEL TAKES MEDS WHOLE. PTN IS ON SOFT DIET, AND STILL HAS ORDER FOR THICKENED LIQUIDS. MESSAGE LEFT WITH SPEECH THERAPY TO RE-EVALUATE. LAST SWALLOW STUDY MID SEPTEMBER. PTN DNR. AWAITING POSSIBLE PLACEMENT. CONTINUE TO MONITOR.
--- NOTE | 2021-10-19 06:08 | NUR ---
PT SUMMARY PT REFUSING TO FOLLOW THICKENED FLUIDS. PT EDUCATED AND STILL ONLY WANTS THIN WATER. WOULD BE BENEFICIAL IF PT HAD A FOLLOW UP SPEECH EVAL.
--- NOTE | 2021-10-19 08:00 | NUR ---
PT PLEASNT FLAT WITHDRAWN EFFECT. SITTING ON BENCH. WRAPPED IN BLANKET. ACCEPTED BOWEL CARE MEDS. REFUSED HER OTHER. PRESENTS DOME PARANOID. DENIES ANY PAIN NEEDING TREATMENT NEEDED AT THIS TIME. H/R REG, NO MURMUR NOTED. NO TELE. BLE TRACE EDEMA NOTED. LUNGS CLEAR, RESP EASY, UNLABORED. ON R/A. BT X4 LAST BM NOT KNOWN BY PT. VOIDS INDEPENDANT TO BATHROOM. BED IN LOW POSITION, CALL LITE IN REACH, CALLS APPROP
--- NOTE | 2021-10-19 18:14 | NUR ---
PT PLEASANT BUT QUIET TODAY. NO C/O PAIN. DID AMBULATE SELF TO BATHROOM TODAY. NO VISITORS SEEN. DID GET CALL FROM FAMILY IN [place]. STATED GOT HOME SAFELY FROM VISIT HERE. MESSAGE RELAYED TO PT. NO OTHER CONCERNS NOTED. BED IN LOW POSITION, CALL LITE IN REACH, CALLS APPRP
--- NOTE | 2021-10-20 08:00 | NUR ---
PT PLEASANT FLAT EFFECT, WITHDRAWN. A/O X3, QUIET. SITTING ON BENCH THIS AM. H/R REG, NO MURMUR NOTED. NO TELE. LUNGS CLEAR, RESP EASY, UNLABORED. ON R/A. BT X4 LAST BM YEST PER PT. VOIDS INDEPENDANT TO BATHROOM. BED IN LOW POSITION,. CALL LITE IN REACH, CALLS APPROP. PENDING D/C TO SNF/
--- NOTE | 2021-10-20 13:01 | NUR ---
IN ROOM WITH SISTER. HANDED PT HOME MEDS AND HER WATCH TO HIM. NOTE SIGNED IN CHART ALSO
[2021-10-21] MEDS ORDERED: ACET325 PO (11:58)
[2021-10-21] MEDS ORDERED: BISA10S PR (11:59)
[2021-10-21] MEDS ORDERED: ATROPINE SULFATE5 ML SL (11:59)
[2021-10-21] MEDS ORDERED: FURO20 PO (12:00)
[2021-10-21] MEDS ORDERED: Calcium Carbon500 MG PO (12:00)
[2021-10-21] MEDS ORDERED: MICONAZOLE TOP (12:01)
[2021-10-21] MEDS ORDERED: MIRALAX17 GM PO (12:01)
--- NOTE | 2021-10-21 15:34 | NUR ---
DISCHARGE SUMMARY PATIENT IS ALERT AND ORIENTATED. PATIENT HAS HAD NO ACUTE EVENTS THIS SHIFT. VITAL SIGNS REVIEWED. PATIENT IS BEING DISCHARGED HOME TO . PATIENT WAS WHEELED OUT BY DESTIN PANDEY.
== END 2021-10-21 14:35 | disposition hospice, home (50) | DRG 917 ==
LOC: ICUW 14:51 → MEDS 18:10 → ICUW 18:11 → MEDS 09-17 21:19
PROVIDERS: Family Medicine; Internal Medicine; Internal Medicine Critical Care Medicine; ADMIT Hospitalist
PROC: 5A1945Z Respiratory Ventilation, 24-96 Consecutive Hours (ICD-10-PCS; principal; 2021-09-15)
PROC: 3E033XZ Introduction of Vasopressor into Peripheral Vein, Percutaneous Approach (ICD-10-PCS; 2021-09-15)
PROC: 3E03329 Introduction of Other Anti-infective into Peripheral Vein, Percutaneous Approach (ICD-10-PCS; 2021-09-15)
DX: T43.592A Poisoning by other antipsychotics and neuroleptics, intentional self-harm, initial encounter (principal); A41.9 Sepsis, unspecified organism; J18.9 Pneumonia, unspecified organism; R65.21 Severe sepsis with septic shock; J96.01 Acute respiratory failure with hypoxia; J69.0 Pneumonitis due to inhalation of food and vomit; E87.1 Hypo-osmolality and hyponatremia; F03.91 Unspecified dementia, unspecified severity, with behavioral disturbance; E87.0 Hyperosmolality and hypernatremia; Z66 Do not resuscitate; D72.828 Other elevated white blood cell count; F32.A Depression, unspecified; M79.7 Fibromyalgia; Z51.5 Encounter for palliative care; E53.8 Deficiency of other specified B group vitamins; E78.5 Hyperlipidemia, unspecified; E03.9 Hypothyroidism, unspecified; F32.9 Major depressive disorder, single episode, unspecified; Z85.828 Personal history of other malignant neoplasm of skin; F43.10 Post-traumatic stress disorder, unspecified; G43.909 Migraine, unspecified, not intractable, without status migrainosus; E55.9 Vitamin D deficiency, unspecified; Z90.710 Acquired absence of both cervix and uterus; Z88.8 Allergy status to other drugs, medicaments and biological substances; Z98.890 Other specified postprocedural states; Z91.012 Allergy to eggs; Z79.899 Other long term (current) drug therapy; K21.9 Gastro-esophageal reflux disease without esophagitis; T50.1X2A Poisoning by loop [high-ceiling] diuretics, intentional self-harm, initial encounter; E87.6 Hypokalemia; B37.2 Candidiasis of skin and nail
CPT/HCPCS: 36415; 36600; 71045; 74230; 80048; 80053; 80069; 80076; 82330; 82550; 82553; 82803; 83735; 84100; 84132; 84295; 84443; 85025; 85027; 87040; 87070; 87205; 92526; 92610; 92611; 93005; 93010; 94002; 94664; 94760; 94762; 97110; 97116; 97129; 97162; 97166; 97530; 97535; A9270; C9113; G0480; J1650; J2543; J2704; J3480; J7040; J7050; J7060; J7070; J7120